=== PATIENT | female | born 1945 | race Caucasian/White ===

== ENCOUNTER 2017-05-30 10:09 | Inpatient (IN) ==
[2017-05-30] MEDS ORDERED: DUONEB NEB STA (11:11)
[2017-05-30] MEDS ORDERED: DECADRON 4 MG/ML SDV IM STA (11:11)
--- NOTE | 2017-05-30 13:18 | ED.PDOC ---
General ED Provider: Dr. HELENA WOODS Chief Complaint: Respiratory Complaint Stated Complaint: flu like symp Time Seen by Physician: 10:10 Mode of Arrival: Walk-In Information Source: Patient Exam Limitations: No limitations Primary Care Provider: SHANNAN LEON Nursing and Triage Documentation Reviewed and Agree: Yes Reviewed sepsis parameters & appropriate labs ordered?: Yes System Inflammatory Response Syndrome: Not Applicable Sepsis Protocol: For patient's 13 years and over: Temp is 96.8 and below OR 101 and greater Pulse >90 BPM Resp >20/minute Acutely Altered Mental Status Are patient's symptoms suggestive of a new infection, such as: -Pneumonia -Skin, Soft Tissue -Endocarditis -UTI -Bone, Joint Infection -Implantable Device -Acute Abdominal Infection -Wound Infection -Meningitis -Blood Stream Catheter Infection -Unknown System Inflammatory Response Syndrome: Not Applicable Respiratory Complaint Exam - Respiratory Complaint/Exam Onset/Duration: 2 days Symptoms Are: Still present Timing: Intermittent Initial Severity: Moderate Current Severity: Mild Location: Nose Character: Reports: Non-productive cough, Dry cough Aggravating: Reports: URI Associated Signs and Symptoms: Reports: URI, Nasal congestion History of Healthcare-Acquired Pneumonia: No Related Surgical History: Reports: None Pulmonary Embolism Risk Factors: Bedrest Cardiac Risk Factors: Reports: None Pseudomonas Risk Factors: Reports: None Tuberculosis Risk Factors: Reports: None Status Asthmaticus Risk Factors: Reports: None Home Oxygen Use: No Recent Stress Test: No Recent Echo/LV Function: No Current Antibiotic Use: No Current Asthma Medication Use: No Respiratory Distress: None Inadequate Respiratory Effort: No Dysphagia Present: No Stridor Present: No JVD Present: No Retractions: Not Present Diminished Breath Sounds: Yes Differential Diagnoses: CHF, Pulmonary Edema, COPD Exacerbation, Pneumonia, URI , Lower Resp. Infection Review of Systems - Review Of Systems Constitutional: Reports: Malaise, Weakness, Loss of appetite Eyes: Reports: No symptoms Ears, Nose, Mouth, Throat: Reports: No symptoms Respiratory: Reports: Cough, Short of air Cardiac: Reports: No symptoms GI: Reports: No symptoms : Reports: No symptoms Musculoskeletal: Reports: No symptoms Skin: Reports: No symptoms Neurological: Reports: No symptoms Endocrine: Reports: No symptoms Hematologic/Lymphatic: Reports: No symptoms All Other Systems: Reviewed and Negative Past Medical History - Past Medical History Previously Healthy: No Endocrine: Reports: None Cardiovascular: Reports: Hypertension Respiratory: Reports: None Hematological: Reports: None Gastrointestinal: Reports: GERD Genitourinary: Reports: None Neuro/Psych: Reports: None Musculoskeletal: Reports: None Cancer: Reports: None Last Menstrual Period: na - Surgical History General Surgical History: Reports: None - Family History Family History: Reports: None - Social History Smoking Status: Former smoker Hx Substance Use: No Alcohol Screening: None - Immunizations Tetanus Shot up to Date: No Physical Exam - Physical Exam Appearance: Well-appearing, No pain distress, Well-nourished Eyes: JAYLEEN, EOMI, Conjunctiva clear ENT: Ears normal, Nose normal, Oropharynx normal Respiratory: Airway patent, Breath sounds clear, Breath sounds equal, Respirations nonlabored Cardiovascular: RRR, Pulses normal, No rub, No murmur GI/: Soft, Nontender, No masses, Bowel sounds normal, No Organomegaly Musculoskeletal: Normal strength, ROM intact, No edema, No calf tenderness Skin: Warm, Dry, Normal color Neurological: Sensation intact, Motor intact, Reflexes intact, Cranial nerves intact, Alert, Oriented Psychiatric: Affect appropriate, Mood appropriate Interpretation - Radiology Interpretation Radiology Interpretation By: Radiologist Radiology Results: Positive (neoplasia vs pneumonia) Physician Notification - Case Discussed Physician Notified: david Time of Notification: 14:39 Admit To: Inpatient Critical Care Note - Critical Care Note Total Time (mins): 0 Course - Course Hematology/Chemistry: 05/30/17 11:22 05/30/17 11:22 Orders, Labs, Meds: Lab Review 05/30/17 05/30/17 05/30/17 11:22 11:22 11:22 WBC 8.86 RBC 3.93 L Hgb 13.2 Hct 38.5 MCV 98.0 MCH 33.6 H MCHC 34.3 RDW Coeff of Lizz 11.5 L Plt Count 149 Immature Gran % (Auto) 0.2 Neut % (Auto) 89.7 Lymph % (Auto) 4.7 L Centre % (Auto) 5.3 Eos % (Auto) 0.0 Baso % (Auto) 0.1 Immature Gran # (Auto) 0.0 Neut # 7.9 H Lymph # 0.4 L Centre # 0.5 Eos # 0.0 Baso # 0.0 Sodium 130 L Potassium 4.1 Chloride 95 L Carbon Dioxide 26 Anion Gap 13.1 BUN 11 Creatinine 0.82 Estimated GFR (MDRD) 68.00 BUN/Creatinine Ratio 13.41 Glucose 154 H Lactic Acid 16.5 Calcium 9.2 Total Bilirubin 0.5 AST 26 ALT 20 Alkaline Phosphatase 48 L Total Creatine Kinase 82 Troponin I 0.0160 Total Protein 6.8 Albumin 3.2 L Globulin 3.6 Albumin/Globulin Ratio 0.89 Procalcitonin Urine Color Urine Clarity Urine pH Ur Specific [place] Urine Protein Urine Glucose (UA) Urine Ketones Urine Blood Urine Nitrite Urine Bilirubin Urine Urobilinogen Ur Leukocyte Esterase Urine Microscopic RBC Urine Microscopic WBC Ur Squamous Epith Cells Hyaline Casts Influenza A (Rapid) Influenza B (Rapid) 05/30/17 05/30/17 05/30/17 11:22 11:30 13:10 WBC RBC Hgb Hct MCV MCH MCHC RDW Coeff of Lizz Plt Count Immature Gran % (Auto) Neut % (Auto) Lymph % (Auto) Centre % (Auto) Eos % (Auto) Baso % (Auto) Immature Gran # (Auto) Neut # Lymph # Centre # Eos # Baso # Sodium Potassium Chloride Carbon Dioxide Anion Gap BUN Creatinine Estimated GFR (MDRD) BUN/Creatinine Ratio Glucose Lactic Acid Calcium Total Bilirubin AST ALT Alkaline Phosphatase Total Creatine Kinase Troponin I Total Protein Albumin Globulin Albumin/Globulin Ratio Procalcitonin 0.14 Urine Color Yellow Urine Clarity Clear Urine pH 6.0 Ur Specific [place] 1.010 Urine Protein 1+ Urine Glucose (UA) Negative Urine Ketones Negative Urine Blood 2+ Urine Nitrite Negative Urine Bilirubin Negative Urine Urobilinogen 0.2 Ur Leukocyte Esterase Negative Urine Microscopic RBC 0-2 Urine Microscopic WBC 0-2 Ur Squamous Epith Cells 0-2 Hyaline Casts 0-2 Influenza A (Rapid) Positive by naat H Influenza B (Rapid) Negative by naat Orders Category Date Time Status ADMIT PATIENT INPATIENT .TO MEDSURG (NON-MONITORED ADMISSION 05/30/17 14: 35 Ordered BED) EKG-(ED ONLY) Stat CARDIO 05/30/17 11:10 Completed EKG-(IP & OP ONLY) DAILY CARDIO 05/31/17 06:00 Ordered EKG-(IP & OP ONLY) DAILY CARDIO 06/01/17 06:00 Ordered EKG-(IP & OP ONLY) DAILY CARDIO 06/02/17 06:00 Ordered NEBULIZER TREATMENT Stat CARDIO 05/30/17 11:11 Completed NEBULIZER TREATMENT Stat CARDIO 05/30/17 14:34 Ordered VITAL SIGNS Q8HR CARE 05/30/17 14:35 Ordered REGULAR DIET DIETARY 05/30/17 Lunch Ordered BLOOD CULTURE Stat LAB 05/30/17 11:22 Received CBC W/ AUTO DIFF DAILY@0600 LAB 05/31/17 06:00 Ordered CBC W/ AUTO DIFF DAILY@0600 LAB 06/01/17 06:00 Ordered CBC W/ AUTO DIFF Stat LAB 05/30/17 11:22 Completed COMPREHENSIVE METABOLIC PANEL DAILY@0600 LAB 05/31/17 06:00 Ordered COMPREHENSIVE METABOLIC PANEL DAILY@0600 LAB 06/01/17 06:00 Ordered COMPREHENSIVE METABOLIC PANEL Stat LAB 05/30/17 11:22 Completed CREATINE KINASE Stat LAB 05/30/17 11:22 Completed FLU A/B MOLECULAR Stat LAB 05/30/17 11:30 Completed LACTIC ACID Stat LAB 05/30/17 11:22 Completed PROCALCITONIN Stat LAB 05/30/17 11:22 Completed TROPONIN I Stat LAB 05/30/17 11:22 Completed URINALYSIS C & S IF INDICATED Stat LAB 05/30/17 13:10 Completed Ceftriaxone Sodium [Rocephin] 1 gm MEDS 05/30/17 15:00 Ordered 0.9 % Sodium Chloride [Sodium Chloride] 50 ml IV DAILY Clopidogrel Bisulfate [Plavix] MEDS 05/31/17 09:00 Ordered 75 mg PO DAILY Dexamethasone 4 mg/ml Inj [Decadron 4 mg/ml Sdv] MEDS 05/30/17 11:11 Discontinued 8 mg IM ONCE STA Ipratropium/Albuterol Neb [Duoneb] MEDS 05/30/17 11:11 Discontinued 1 vial NEB ONCE STA Ipratropium/Albuterol Neb [Duoneb] MEDS 05/30/17 18:00 Ordered 1 vial NEB RTQ6H Methylprednisolone Sod Succ/Pf [Solu-Medrol 40 mg] MEDS 05/30/17 21:00 Ordered 40 mg IVP Q12HR Metoprolol Tartrate [Metoprolol Tartrate] MEDS 05/30/17 21:00 Ordered 100 mg PO BID Omeprazole [Prilosec] MEDS 05/31/17 09:00 Ordered 20 mg PO DAILY Sodium Chloride 0.9% [Sodium Chloride] 1,000 ml MEDS 05/30/17 15:00 Ordered IV 75 mls/hr Vancomycin HCl [Vancomycin] 1,000 mg MEDS 05/30/17 14:33 Ordered 0.9 % Sodium Chloride [Sodium Chloride] [address] CHEST W/O CONTRAST Stat RADS 05/30/17 13:17 Completed Medications Generic Name Dose Route Start Last Admin Trade Name Juan Antonioq PRN Reason Stop Dose Admin Albuterol/Ipratropium 1 vial 05/30/17 18:00 Duoneb MARYLOU RTQ6H BEKAH Clopidogrel Bisulfate 75 mg 05/31/17 09:00 Plavix PO DAILY BEKAH Ceftriaxone Sodium 1 gm/ 50 mls @ 75 mls/hr 05/30/17 15:00 Sodium Chloride IV DAILY BEKAH Vancomycin HCl 1,000 mg/ 200 mls @ 100 mls/hr 05/30/17 14:33 Sodium Chloride IV 05/30/17 16:32 ONCE STA Sodium Chloride 1,000 mls @ 75 mls/hr 05/30/17 15:00 Sodium Chloride IV .[id number] BEKAH Methylprednisolone Sodium Succinate 40 mg 05/30/17 21:00 Solu-Medrol 40 Mg IVP Q12HR [facility] Non-Formulary Medication 100 mg 05/30/17 21:00 Metoprolol Tartrate [Metoprolol Tartrate] PO BID BEKAH Omeprazole 20 mg 05/31/17 09:00 Prilosec PO DAILY [facility] Discontinued Medications Generic Name Dose Route Start Last Admin Trade Name Tori PRN Reason Stop Dose Admin Albuterol/Ipratropium 1 vial 05/30/17 11:11 05/30/17 11:35 Baldev HICKMAN 05/30/17 11:12 1 vial ONCE STA Administration Dexamethasone Sodium Phosphate 8 mg 05/30/17 11:11 05/30/17 11:30 Decadron 4 Mg/Ml Sdv IM 05/30/17 11:12 8 mg ONCE STA Administration Vital Signs: Temp Pulse Resp BP Pulse Ox 05/30/17 10:10 99.7 F H 125 H 16 129/79 90 L Departure - Departure Time of Disposition: 14:39 Disposition: ADMITTED INPATIENT Discharge Problem: Pneumonia Qualifiers: Pneumonia type: due to unspecified organism Instructions: Pneumonitis (ED) Condition: Good Pt referred to PMD for follow-up: Yes IPMP verified?: Yes Additional Instructions: Please call your Family Physician as soon as possible to schedule a follow-up appointment. Allergies/Adverse Reactions: Allergies meperidine HCl [From Demerol] Allergy (Intermediate, Unverified 02/04/15 12:39) Hives amoxicillin [From Amoxil] Adverse Reaction (Verified 05/30/17 10:24) cefdinir Adverse Reaction (Verified 05/30/17 10:24) clavulanic acid [From Augmentin] Adverse Reaction (Verified 05/30/17 10:24) phenytoin [From Dilantin] Adverse Reaction (Verified 05/30/17 10:24) Home Medications: Ambulatory Orders Amlodipine Besylate/Benazepril [Amlodipine-Benazepril 10-20 Mg] 1 each PO DAILY 02/04/15 Clopidogrel Bisulfate [Clopidogrel] 75 mg PO DAILY 02/04/15 Metoprolol Tartrate 100 mg PO BID 02/04/15 Albuterol Sulfate [Ventolin Hfa] 2 puff IH TID 05/30/17 Calcium Carbonate [Calcium] 600 mg PO DAILY 05/30/17 Cholecalciferol (Vitamin D3) [Vitamin D3] 1 cap PO DAILY 05/30/17 Omeprazole [Prilosec] 20 mg PO DAILY 05/30/17 Umeclidinium Brm/Vilanterol Tr [Anoro Ellipta 62.5-25 Mcg INH] 1 puff IH DAILY PRN 05/30/17 Vitamin E 1,000 units PO DAILY 05/30/17 Disposition Discussed With: Patient, Family
--- NOTE | 2017-05-30 13:56 | CT ---
EXAM: CT THORAX HISTORY: Cough. TECHNIQUE: CT thorax without intravenous contrast. Multiplanar images presented. Coronal and sagit vineet re-formations. COMPARISON: None FINDINGS: Normal heart size. Mild atherosclerotic disease. There are scattered calcifications suggesting old g ranulomatous disease. There is scattered fibrosis. Mild bilateral bronchiectasis. A few stellate opacities are seen in th e right apex, greater than left apex possibly fibrotic in nature. Mild pneumonia at this level, irais cially on the right cannot completely be excluded. The lungs are otherwise unremarkable. No pleural fluid or vascular congestion. The bones reveal no acute finding. IMPRESSION: Patchy biapical pleuroparenchymal thickening which is likely fibrotic. Cannot exclude early neoplasi a or pneumonia. Lungs are otherwise clear. Consider follow-up CT in 3-4 months.
[2017-05-30] MEDS ORDERED: VANCOMYCIN 1,000 MG in SODIUM CHLORIDE 200 ML IV STA (14:33)
[2017-05-30] MEDS ORDERED: TYLENOL PO STA (15:10)
[2017-05-30] MEDS ORDERED: VANCOMYCIN ONE (15:11)
[2017-05-30 16:23] VITALS: BMI 34.8
[2017-05-30] MEDS: SODIUM CHLORIDE 1,000 ML IV SCH (17:52)
[2017-05-30] MEDS ORDERED: ROCEPHIN ONE (17:55)
[2017-05-30] MEDS: ROCEPHIN 1 GM in SODIUM CHLORIDE 50 ML IV SCH (17:58)
[2017-05-30] MEDS ORDERED: DUONEB NEB SCH (18:00)
[2017-05-30] MEDS: DUONEB NEB SCH (20:11)
[2017-05-30] MEDS ORDERED: NON-FORMULARY MEDICATION (Metoprolol Tartrate [Metoprolol Tartrate] 100 MG) PO SCH (21:00)
[2017-05-30] MEDS: LOPRESSOR PO SCH (22:06)
[2017-05-30] MEDS: SOLU-MEDROL 40 MG IVP SCH (22:06)
[2017-05-31] MEDS: DUONEB NEB SCH ×4 (04:19→21:35)
[2017-05-31] MEDS: PRILOSEC PO SCH (05:39)
[2017-05-31] MEDS: SODIUM CHLORIDE 1,000 ML IV SCH ×2 (07:59→11:00)
[2017-05-31] MEDS: SOLU-MEDROL 40 MG IVP SCH ×2 (08:01→20:41)
[2017-05-31] MEDS: LOPRESSOR PO SCH ×2 (08:01→20:41)
[2017-05-31] MEDS: PLAVIX PO SCH (08:01)
[2017-05-31] MEDS: ROCEPHIN 1 GM in SODIUM CHLORIDE 50 ML IV SCH (08:03)
[2017-05-31] MEDS: TAMIFLU PO SCH ×2 (12:56→20:41)
[2017-06-01] MEDS: SODIUM CHLORIDE 1,000 ML IV SCH (03:43)
[2017-06-01] MEDS: DUONEB NEB SCH ×4 (05:00→21:48)
[2017-06-01] MEDS: PRILOSEC PO SCH (05:43)
[2017-06-01] MEDS: ROCEPHIN 1 GM in SODIUM CHLORIDE 50 ML IV SCH (08:43)
[2017-06-01] MEDS: TAMIFLU PO SCH ×2 (08:43→20:06)
[2017-06-01] MEDS: SOLU-MEDROL 40 MG IVP SCH ×2 (08:43→20:06)
[2017-06-01] MEDS: LOPRESSOR PO SCH ×2 (08:44→20:06)
[2017-06-01] MEDS: PLAVIX PO SCH (08:44)
--- NOTE | 2017-06-01 10:09 | HP ---
DATE OF SERVICE: 05/30/17 CHIEF COMPLAINT: Cough, congestion and fever. HISTORY OF PRESENT ILLNESS: This is a 72 year old female who has been coughing , congested, getting a little green phlegm for four to five days, almost last Monday. Temperature max was 100. The patient's daughter was diagnosed with bronchial fever with sputum. She came to the emergency room today and the temperature was 99.7. She was seen by Dr. Hwang in the emergency room. White count was normal. Sodium 140. Influenza positive. CT of the chest was done which showed patchy biapical pleuroparenchymal thickening which is likely fibrotic. Cannot exclude early neoplasia or pneumonia. At that time, the patient was admitted to the hospital for the IV antibiotics and breathing treatments. REVIEW OF SYSTEMS: CONSTITUTIONAL: Weakness, tiredness. Fever, no chills. HEENT: Normal. ENDOCRINE: No weight gain; no weight loss. CVS: No chest pain. No PND, no orthopnea. Shortness of breath. No PND, no orthopnea. RESPIRATORY: Cough and congestion. No hemoptysis. GI: No nausea, no vomiting. No abdominal pain. No melena. : No hematuria. No polyuria. MUSCULOSKELETAL: No joint swelling. PSYCHIATRIC: Not anxious. No depression. No suicidal thoughts. No homicidal thoughts. SKIN: Intact, no open lesions. PAST MEDICAL HISTORY: Hypertension Coronary artery disease Dyslipidemia COPD Mitral valve prolapse Nicotine use PAST SURGICAL HISTORY: Intracranial aneurism clipped Tonsillectomy PERSONAL HISTORY: Quit smoking six years ago. No alcohol and no drugs. Lives by herself. Independent of ADL's. FAMILY HISTORY: Significant for the RI and diabetes. Two brothers have diabetes and prostate cancer. MEDICATIONS: Metoprolol, Plavix, Norvasc, Vitamin E, Omeprazole, Vitamin D3, Calcium, Anoro and Ventolin. ALLERGIES: Meperidine, Amoxicillin, Clavulanic acid and Cefdinir. PHYSICAL EXAMINATION: V/S: Blood pressure 129/79, respiratory rate 125, saturation 90, temperature 99.7. HEENT: Atraumatic, normocephalic. No scleral icterus. Pallor positive. Mucosa dry. No icterus. NECK: Supple. No JVD, no bruit. No lymphadenopathy. No thyromegaly. HEART: S1, S2 normal. No murmur. No cyanosis or clubbing. No ascites. LUNGS: Decreased basilar crackles. No rales or rhonchi. ABDOMEN: Soft, nontender. Bowel sounds are active. No CVA tenderness. No rigidity or guarding. EXTREMITIES: No pedal edema. No cyanosis or clubbing MUSCULOSKELETAL: Normal joints, no swelling. NEUROLOGIC: The patient is awake and alert. SKIN: Intact; no open lesions. LYMPHATIC: No lymph nodes palpable. LABS: White count 8.86, hemoglobin 13.2, hematocrit 38.5, platelet count 149, sodium 130, potassium 4.1, chloride 95, bicarb 26, BUN 11, creatinine 0.82, glucose 154. ASSESSMENT: 1. COMMUNITY ACQUIRED PNEUMONIA 2. HYPONATREMIA 3. HYPERTENSION 4. DYSLIPIDEMIA PLAN: 1. Admit the patient to the regular floor. 2. CBC, CMP today and daily. 3. Cardiac enzymes and Troponins. 4. IV fluids. 5. Rocephin 1 gram daily. 6. Plavix 7. DuoNebs. 8. Solu-Medrol 40 every 12 hours. 9. Vancomycin 1 gram daily. 10.Daily I & O's. TIME SPENT: MORE THAN 70 minutes MTDD
--- NOTE | 2017-06-01 10:17 | PN ---
DATE OF SERVICE: 05/31/17 SUBJECTIVE: 72 year old female admitted with influenza positive and pneumonia with a CT scan. Still some coughing. Otherwise, no chest pain, PND, orthopnea. REVIEW OF SYSTEMS: CONSTITUTIONAL: No fever, no chills. HEENT: Normal. ENDOCRINE: No weight gain, no weight loss. CVS: No angina symptoms. No CHF symptoms. No palpitations. No atypical chest pain for CAD. No shortness of breath. No PND, no orthopnea. RESPIRATORY: Cough, no hemoptysis. GI: No nausea, no vomiting. No abdominal pain. : No hematuria. No polyuria. MUSCULOSKELETAL: No joint swelling. PSYCHIATRIC: Not anxious. No depression. No suicidal thoughts. No homicidal thoughts. SKIN: Intact. No rash. PHYSICAL EXAMINATION: V/S: Blood pressure 134/81, respiratory rate 20, heart rate 74, temperature 96.7 , saturation 96 on 2 liters. HEENT: Normocephalic, atraumatic. Mucosa dry. NECK: Supple. No JVD, no carotid bruit. No lymphadenopathy. LUNGS: Basilar crackles. No rales or rhonchi. HEART: S1, S2 normal. No S3. No murmur, gallop or regurgitation. ABDOMEN: Soft, nontender. Bowel sounds active. No rigidity. No rebound or guarding. No CVA tenderness. EXTREMITIES: No pedal edema. No clubbing or cyanosis MUSCULOSKELETAL: No joint swelling. NEUROLOGIC: Awake, alert, oriented times three. No focal deficit. LYMPHATIC: No lymph nodes palpable. SKIN: Intact. LABS: Sodium 137, potassium 4.4, chloride 105, bicarb 24, BUN 17, creatinine 0.75, glucose 148, white count 5.66, hemoglobin 13.7, hematocrit 40.1, platelet count 166. ASSESSMENT: 1. COMMUNITY ACQUIRED PNEUMONIA 2. INFLUENZA A POSITIVE 3. DEHYDRATION 4. HYPERTENSION 5. HISTORY OF MITRAL VALVE PROLAPSE 6. HEADACHE 7. HISTORY OF ANEURYSM PLAN: 1. Continue Rocephin, DuoNebs, Solu-Medrol 40 mg every 12 hours. 2. Daily I & O's. 3. Will decrease the IV fluids to 30 ml per hour. 4. Will follow up with the patient in daily rounds. TIME SPENT: More than 30 minutes MTDD
[2017-06-01] MEDS: ZITHROMAX PO SCH (11:01)
--- NOTE | 2017-06-01 13:01 | CT ---
EXAM: CT chest without contrast HISTORY: Shortness of breath, hypoxia, Influenza A, pneumonia COMPARISON: 05/30/2017 TECHNIQUE: CT chest performed without intravenous contrast. Coronal and sagittal reformatted images obtained. FINDINGS: Thyroid and thoracic inlet appear normal. Heart normal in size. Esophagus unremarkable. Evaluation for lymphadenopathy limited without contrast. No lymphadenopathy identified. Granulomat ous calcification. No acute abnormalities of the bones. Degenerative change in the spine. Central airway patent. Mild to moderate centrilobular emphysema. Bilateral lower airway thickening. No ple ural effusion or pneumothorax. Small dependent ground-glass right lung base image 43. Stable biapic al pleural parenchymal thickening. No airspace consolidation. IMPRESSION: 1. Bilateral lower airway thickening, likely infectious/inflammatory bronchitis. 2. Mild right basilar dependent ground-glass likely atelectasis versus less likely pneumonitis. 3. Mild to moderate centrilobular emphysema 4. Biapical pleural parenchymal thickening, likely representing scarring/fibrosis. Recommend CT thalia st follow-up 4 months to ensure stability.
[2017-06-02] MEDS: DUONEB NEB SCH ×4 (04:33→20:12)
[2017-06-02] MEDS: PRILOSEC PO SCH (05:59)
[2017-06-02] MEDS: PLAVIX PO SCH (08:53)
[2017-06-02] MEDS: ROCEPHIN 1 GM in SODIUM CHLORIDE 50 ML IV SCH (08:53)
[2017-06-02] MEDS: SOLU-MEDROL 40 MG IVP SCH ×2 (08:53→20:16)
[2017-06-02] MEDS: ZITHROMAX PO SCH (08:54)
[2017-06-02] MEDS: DOXYCYCLINE HYCLATE PO SCH ×2 (08:54→20:16)
[2017-06-02] MEDS: TAMIFLU PO SCH ×2 (08:54→20:16)
[2017-06-02] MEDS: LOPRESSOR PO SCH ×2 (08:54→20:16)
[2017-06-02] MEDS ORDERED: VANCOMYCIN 1,000 MG in SODIUM CHLORIDE 200 ML IV SCH (09:00)
[2017-06-02] MEDS: VANCOMYCIN 750 MG in SODIUM CHLORIDE 250 ML IV SCH ×2 (09:47→20:15)
[2017-06-03] MEDS: DUONEB NEB SCH ×4 (05:15→20:19)
[2017-06-03] MEDS: PRILOSEC PO SCH (05:47)
[2017-06-03] MEDS: VANCOMYCIN 750 MG in SODIUM CHLORIDE 250 ML IV SCH ×2 (09:00→21:28)
[2017-06-03] MEDS: DOXYCYCLINE HYCLATE PO SCH ×2 (09:01→21:27)
[2017-06-03] MEDS: LOPRESSOR PO SCH ×2 (09:01→21:28)
[2017-06-03] MEDS: PLAVIX PO SCH (09:02)
[2017-06-03] MEDS: TAMIFLU PO SCH ×2 (09:02→21:28)
[2017-06-03] MEDS: SOLU-MEDROL 40 MG IVP SCH (09:03)
[2017-06-03] MEDS: ZITHROMAX PO SCH (09:03)
[2017-06-03] MEDS: ROCEPHIN 1 GM in SODIUM CHLORIDE 50 ML IV SCH (11:37)
[2017-06-03] MEDS: PREDNISONE PO SCH (18:08)
[2017-06-04] MEDS: DUONEB NEB SCH ×3 (04:48→14:05)
[2017-06-04] MEDS: PRILOSEC PO SCH (05:43)
[2017-06-04] MEDS: PREDNISONE PO SCH (08:37)
[2017-06-04] MEDS: PLAVIX PO SCH (08:37)
[2017-06-04] MEDS: LOPRESSOR PO SCH (08:37)
[2017-06-04] MEDS: DOXYCYCLINE HYCLATE PO SCH (08:38)
[2017-06-04] MEDS: TAMIFLU PO SCH (08:38)
[2017-06-04] MEDS: ROCEPHIN 1 GM in SODIUM CHLORIDE 50 ML IV SCH (08:38)
[2017-06-04] MEDS: VANCOMYCIN 750 MG in SODIUM CHLORIDE 250 ML IV SCH (10:02)
[2017-06-04 10:16] VITALS: BP 140/77; TEMP 97
--- NOTE | 2017-06-09 09:52 | PN ---
DATE OF SERVICE: 06/01/17 SUBJECTIVE: The patient was admitted with the flu and pneumonia. Still coughing with congestion and shortness of breath with minimal exertion. The patient is dropping the saturation to the 90's with minimal exertion. REVIEW OF SYSTEMS: CONSTITUTIONAL: No fever, no chills. HEENT: Normal. ENDOCRINE: No weight gain, no weight loss. CVS: No angina symptoms. No CHF symptoms. No palpitations. No atypical chest pain for CAD. Shortness of breath. No PND, no orthopnea. RESPIRATORY: Cough and congestion, no hemoptysis. GI: No nausea, no vomiting. No abdominal pain. : No hematuria. No polyuria. MUSCULOSKELETAL: No joint swelling. PSYCHIATRIC: Not anxious. No depression. No suicidal thoughts. No homicidal thoughts. SKIN: Intact. No rash. PHYSICAL EXAMINATION: V/S: Blood pressure 124/71, respiratory rate 20, heart rate 76, temperature 97.2 , saturation 96 on 2 liters. HEENT: Normocephalic, atraumatic. Mucosa dry. Pallor positive. NECK: Supple. No JVD, no carotid bruit. No lymphadenopathy. LUNGS: Decreased basilar crackles. No rales or rhonchi. HEART: S1, S2 normal. No S3. No murmur, gallop or regurgitation. ABDOMEN: Soft, nontender. Bowel sounds active. No rigidity. No rebound or guarding. No CVA tenderness. EXTREMITIES: No pedal edema. No clubbing or cyanosis MUSCULOSKELETAL: No joint swelling. NEUROLOGIC: Awake, alert, oriented times three. No focal deficit. LYMPHATIC: No lymph nodes palpable. SKIN: Intact. LABS: White count 12.50, hemoglobin 12.9, hematocrit 37.9, platelet count 181, sodium 137, potassium 4.2, chloride 104, bicarb 18, BUN 21, creatinine 0.80, glucose 162. ABG done which showed a pH of 7.335, PCO2 38.9, PO2 76. ASSESSMENT: 1. CHRONIC OBSTRUCTIVE PULMONARY DISEASE EXACERBATION SECONDARY TO THE PNEUMONIA 2. INFLUENZA A POSITIVE 3. HYPERGLYCEMIA FROM THE STEROIDS 4. HISTORY OF MITRAL VALVE PROLAPSE 5. HYPERTENSION 6. HISTORY OF BRAIN ANEURYSM WITH A CLIP 7. HISTORY OF LYME'S DISEASE PLAN: 1. Continue the Rocephin, Zithromycin, Tamiflu. 2. Daily I & O's. 3. Start Solu-Medrol 40 mg every 12 hours. 4. IV fluids. TIME SPENT: More than 35 minutes MTDD
--- NOTE | 2017-06-09 10:04 | PN ---
DATE OF SERVICE: 06/02/17 SUBJECTIVE: The patient is still short of breath with minimal exertion. She is coughing and not able to bring any phlegm. No fever or chills. Ct scan of the chest done yesterday showed the bilateral lower airway thickening likely infectious and inflammatory. Mild right basilar dependent atelectasis. Mild to moderate centrilobular emphysema. Biapical pleural parenchymal thickening. Repeat the CT scan in four months. With the given picture, the patient still having some cough and congestion, no fever whatsoever. REVIEW OF SYSTEMS: CONSTITUTIONAL: No fever, no chills. HEENT: Normal. ENDOCRINE: No weight gain, no weight loss. CVS: No angina symptoms. No CHF symptoms. No palpitations. No atypical chest pain for CAD. Shortness of breath. No PND, no orthopnea. RESPIRATORY: Cough and congestion, no hemoptysis. GI: No nausea, no vomiting. No abdominal pain. : No hematuria. No polyuria. MUSCULOSKELETAL: No joint swelling. PSYCHIATRIC: Not anxious. No depression. No suicidal thoughts. No homicidal thoughts. SKIN: Intact. No rash. PHYSICAL EXAMINATION: V/S: Blood pressure 124/71, respiratory rate 20, heart rate 76, saturation on 2 liters is 96, Temperature 97.2. HEENT: Normocephalic, atraumatic. Mucosa dry. NECK: Supple. No JVD, no carotid bruit. No lymphadenopathy. LUNGS: Decreased basilar crackles with mild wheezing. No rales or rhonchi. HEART: S1, S2 normal. No S3. No murmur, gallop or regurgitation. ABDOMEN: Soft, nontender. Bowel sounds active. No rigidity. No rebound or guarding. No CVA tenderness. EXTREMITIES: No pedal edema. No clubbing or cyanosis MUSCULOSKELETAL: No joint swelling. NEUROLOGIC: Awake, alert, oriented times three. No focal deficit. LYMPHATIC: No lymph nodes palpable. SKIN: Intact. LABS: Sodium 136, potassium 4.2, chloride 105, bicarb 24, BUN 26, creatinine 0.688, white count 10.25, hemoglobin 13.1, hematocrit 38.8, platelet count 153. ASSESSMENT: 1. COPD EXACERBATION SECONDARY TO PNEUMONIA, BILATERAL 2. INFLUENZA A POSITIVE 3. HISTORY OF HYPERTENSION 4. MITRAL VALVE PROLAPSE 5. BRAIN ANEURYSM, STATUS POST CLIPPING PLAN: 1. Start the Doxycycline 100 p.o. twice daily. 2. Vancomycin 1 gram daily. 3. DuoNebs. 4. Rocephin. 5. Solu-Medrol. 6. Daily I & O's. TIME SPENT: More than 35 minutes MTDD
--- NOTE | 2017-06-09 10:11 | PN ---
DATE OF SERVICE: 06/03/17 SUBJECTIVE: The patient's cough and congestion is better. Shortness of breath is a lot improved. No fever or chills. REVIEW OF SYSTEMS: CONSTITUTIONAL: No fever, no chills. HEENT: Normal. ENDOCRINE: No weight gain, no weight loss. CVS: No angina symptoms. No CHF symptoms. No palpitations. No atypical chest pain for CAD. Shortness of breath. No PND, no orthopnea. RESPIRATORY: Cough, no hemoptysis. GI: No nausea, no vomiting. No abdominal pain. : No hematuria. No polyuria. MUSCULOSKELETAL: No joint swelling. PSYCHIATRIC: Not anxious. No depression. No suicidal thoughts. No homicidal thoughts. SKIN: Intact. No rash. PHYSICAL EXAMINATION: V/S: Blood pressure 137/77, respiratory rate 20, heart rate 92, temperature 97.7 , saturation 95 on 2 liters. HEENT: Normocephalic, atraumatic. Mucosa dry. NECK: Supple. No JVD, no carotid bruit. No lymphadenopathy. LUNGS: Basilar crackles. No rales or rhonchi. HEART: S1, S2 normal. No S3. No murmur, gallop or regurgitation. ABDOMEN: Soft, nontender. Bowel sounds active. No rigidity. No rebound or guarding. No CVA tenderness. EXTREMITIES: No pedal edema. No clubbing or cyanosis MUSCULOSKELETAL: No joint swelling. NEUROLOGIC: Awake, alert, oriented times three. No focal deficit. LYMPHATIC: No lymph nodes palpable. SKIN: Intact. LABS: White count 10.25, hemoglobin 13.1, hematocrit 38.8, platelet count 158, sodium 136, potassium 4.2, chloride 105, bicarb 24, BUN 26, creatinine 0.88. ASSESSMENT: 1. COMMUNITY ACQUIRED PNEUMONIA 2. INFLUENZA A POSITIVE 3. HYPERTENSION 4. GERD PLAN: 1. Continue the Rocephin, Solu-Medrol, fluids and DuoNebs. TIME SPENT: More than 35 minutes MTDD
--- NOTE | 2017-06-09 10:28 | DS ---
DATE OF SERVICE: 06/04/17 FINAL DIAGNOSIS: 1. CHRONIC OBSTRUCTIVE PULMONARY DISEASE EXACERBATION SECONDARY TO COMMUNITY ACQUIRED PNEUMONIA 2. INFLUENZA A POSITIVE 3. DEHYDRATION 4. HISTORY OF MITRAL VALVE PROLAPSE 5. HISTORY OF BRAIN ANEURYSM, WHICH IS CLIPPED 6. HISTORY OF LYME'S DISEASE 7. OSTEOARTHRITIS 8. DJD OF THE SPINE 9. TONSILLECTOMY PLAN: 1. Discharge the patient home. 2. Medications: Keflex 500 mg twice a day for 5 days. DuoNebs three times daily Prednisone 10 mg p.o. twice a day for 5 days 3. Continue the rest of the home medications, which are: Stop the Albuterol, Continue Norvasc, Calcium, Vitamin D3, Plavix, DuoNebs, Omeprazole, Metoprolol, Anoro inhaler and Vitamin E 4. Diet: Cardiac and healthy. 5. Activity: As much as tolerated. DISEASE SPECIFIC EDUCATION: About the pneumonia, COPD, need for the pneumonia vaccination, influenza and need for the influenza vaccination and dehydration were discussed. She verbalized understanding. HOSPITAL COURSE: Myesha Ross, who is a 72 year old female patient of Dr. Roberson from [place], has a history of COPD and came to the emergency room with fever, chills, coughing, congestion and found to have influenza A positive and community acquired pneumonia. At that time, the patient was admitted to the hospital and started on the IV fluids and breathing treatments, Rocephin, Zithromycin and Tamiflu. With the given treatment, the patient was gradually feeling better, but was having some exertional dyspnea for which an ABG was done which showed a pH of 7.335, PCO2 38.9, PO2 76. Repeat chest x-ray again showed the bilateral basilar infiltrate. She was started on Vancomycin and continued with Rocephin and Doxycycline was added. Mouth of the patient has a tremorness response and improvement. With the Dexamethasone in between, the patient did improve much. She was up and about walking and did not have any fever or chills. Clinically, she had improved a lot and the patient is being discharged to home today with order of antibiotics and breathing treatments. The patient's son was in the room to discuss the patient's care and management. He verbalized understanding. Both were happy with taking part in the patient' s health. TIME SPENT: MORE THAN 55 to 65 MINUTES MTDD
== END 2017-06-04 14:46 | disposition home or self-care (01) | DRG 194 ==
LOC: ED 10:09 → MEDSURG B 14:46
PROVIDERS: ADMIT Emergency Medicine; ATTEND Emergency Medicine
DX: J18.9 Pneumonia, unspecified organism (principal); J44.1 Chronic obstructive pulmonary disease with (acute) exacerbation; J98.11 Atelectasis; J10.1 Influenza due to other identified influenza virus with other respiratory manifestations; R06.02 Shortness of breath; I10 Essential (primary) hypertension; E86.0 Dehydration; I34.1 Nonrheumatic mitral (valve) prolapse; M47.9 Spondylosis, unspecified; M19.90 Unspecified osteoarthritis, unspecified site; R51 Headache; Z79.02 Long term (current) use of antithrombotics/antiplatelets; Z79.899 Other long term (current) drug therapy; Z86.79 Personal history of other diseases of the circulatory system; Z86.19 Personal history of other infectious and parasitic diseases
CPT/HCPCS: 36415; 80053; 81001; 82550; 82803; 83605; 84145; 84484; 85007; 85025; 87040; 87502; 93005; 93010; 94640; 96365; 96372; 99284

== ENCOUNTER 2017-07-05 12:02 | Outpatient (CLI) | payer OTHER ==
--- NOTE | 2017-07-05 15:21 | DI ---
EXAM: Two-view chest. HISTORY: Chronic obstructive pulmonary disease. DATE: 07/05/2017. COMPARISON: No comparison radiograph. Correlation is with a CT of the chest obtained on 06/01/2017. TECHNIQUE: PA and lateral views of the chest. FINDINGS: The lungs are hyperexpanded, and the AP diameter of the thorax appears somewhat widened. A small calcified granuloma is again seen in the right middle lobe. No focal consolidation, pleural effusion, or pneumothorax is identified. The heart size is normal. The thoracic aorta contains calc ified plaque. There are mild degenerative changes of the thoracic spine. IMPRESSION:. 1. No acute cardiopulmonary findings. 2. Findings suggestive of emphysematous changes of the lungs. 3. Atherosclerosis.
== END 2017-07-05 12:03 | disposition home or self-care (01) ==
LOC: RAD 12:02
PROVIDERS: ATTEND Emergency Medicine
DX: J06.9 Acute upper respiratory infection, unspecified (principal); J44.9 Chronic obstructive pulmonary disease, unspecified

== ENCOUNTER 2017-10-15 11:47 | Emergency (ER) ==
[2017-10-15 11:52] VITALS: TEMP 97.9; BMI 34.4
--- NOTE | 2017-10-15 12:30 | ED.PDOC ---
General ED Provider: Dr. JACY KING Chief Complaint: Hypertension Stated Complaint: Blood pressure uncontrolled. Patient states her blood pressure was up and checked it and it was 190/120. Patient states she just took extra dose of her medicication. Patient states she was at [address] [place] [id number] and was given clonidine. She states she is not sure what her blood pressure was at the clinic but bottom number was 102. States she had and upset stomach yesterday but denies any other symptoms. Time Seen by Physician: 11:45 Mode of Arrival: Walk-In Information Source: Patient Exam Limitations: No limitations Primary Care Provider[facility] Nursing and Triage Documentation Reviewed and Agree: Yes Does patient meet sepsis criteria?: No System Inflammatory Response Syndrome: Not Applicable Sepsis Protocol: For patient's 13 years and over: Temp is 96.8 and below OR 101 and greater Pulse >90 BPM Resp >20/minute Acutely Altered Mental Status Are patient's symptoms suggestive of a new infection, such as: -Pneumonia -Skin, Soft Tissue -Endocarditis -UTI -Bone, Joint Infection -Implantable Device -Acute Abdominal Infection -Wound Infection -Meningitis -Blood Stream Catheter Infection -Unknown Review of Systems - Review Of Systems Constitutional: Reports: No symptoms Eyes: Reports: No symptoms Ears, Nose, Mouth, Throat: Reports: No symptoms Respiratory: Reports: No symptoms Cardiac: Reports: Lightheadedness GI: Reports: No symptoms : Reports: No symptoms Musculoskeletal: Reports: No symptoms Skin: Reports: No symptoms Neurological: Reports: No symptoms Endocrine: Reports: No symptoms Hematologic/Lymphatic: Reports: No symptoms All Other Systems: Reviewed and Negative Past Medical History - Past Medical History Previously Healthy: Yes Endocrine: Reports: None Cardiovascular: Reports: Hypertension Respiratory: Reports: None, COPD Hematological: Reports: None Gastrointestinal: Reports: GERD Genitourinary: Reports: None Neuro/Psych: Reports: None Musculoskeletal: Reports: None Cancer: Reports: None Last Menstrual Period: n/a - Surgical History General Surgical History: Reports: None, Appendectomy, Tonsillectomy, Unknown ( aneruysms(4); Cerebral aneurysm with clipping, ) - Family History Family History: Reports: None, Heart, Hypertension - Social History Smoking Status: Former smoker Hx Substance Use: No Alcohol Screening: None Physical Exam - Physical Exam Appearance: Well-appearing, No pain distress, Well-nourished Eyes: JAYLEEN, EOMI, Conjunctiva clear ENT: Ears normal, Nose normal, Oropharynx normal Respiratory: Airway patent, Breath sounds clear, Breath sounds equal, Respirations nonlabored, Wheezes Cardiovascular: RRR, Pulses normal, No rub, No murmur GI/: Soft, Nontender, No masses, Bowel sounds normal, No Organomegaly Musculoskeletal: Normal strength, ROM intact, No edema, No calf tenderness Skin: Warm, Dry, Normal color Neurological: Sensation intact, Motor intact, Reflexes intact, Cranial nerves intact, Alert, Oriented Psychiatric: Affect appropriate, Mood appropriate Interpretation - Radiology Interpretation Radiology Interpretation By: Radiologist Radiology Results: No acute changes Exam Interpreted: CXR Re-Evaluation - Re-Evaluation Time of Re-Evaluation: 14:20 Status: Improved Vital Signs Stable: Yes Appearance: NAD Neuro: Alert and Oriented X3 CV: RRR Critical Care Note - Critical Care Note Total Time (mins): 60 Course - Course Hematology/Chemistry: 10/15/17 12:50 10/15/17 12:50 Orders, Labs, Meds: Lab Review 10/15/17 10/15/17 10/15/17 12:50 12:50 12:50 WBC 9.72 RBC 4.50 Hgb 14.8 Hct 42.4 MCV 94.2 MCH 32.9 H MCHC 34.9 RDW Coeff of Lizz 11.9 Plt Count 181 Immature Gran % (Auto) 0.2 Neut % (Auto) 56.1 Lymph % (Auto) 30.9 [place]y % (Auto) 5.3 Eos % (Auto) 6.8 Baso % (Auto) 0.7 Immature Gran # (Auto) 0.0 Neut # (Auto) 5.5 Lymph # (Auto) 3.0 D[place]y # (Auto) 0.5 Eos # (Auto) 0.7 Baso # (Auto) 0.1 ESR 5 Sodium 140 Potassium 3.9 Chloride 105 Carbon Dioxide 23 Anion Gap 15.9 BUN 21 H Creatinine 0.86 Estimated GFR (MDRD) 65.00 BUN/Creatinine Ratio 24.41 Glucose 105 Calcium 9.9 Total Bilirubin 0.6 AST 19 ALT 15 Alkaline Phosphatase 49 L Troponin I < 0.0100 Total Protein 6.6 Albumin 3.6 Globulin 3.0 Albumin/Globulin Ratio 1.20 Orders Category Date Time Status EKG-(ED ONLY) Stat CARDIO 10/15/17 12:34 Completed NEBULIZER TREATMENT Stat CARDIO 10/15/17 12:40 Completed CBC W/ AUTO DIFF Stat LAB 10/15/17 12:50 Completed CMP [COMPREHENSIVE METABOLIC PANEL] Stat LAB 10/15/17 12:50 Completed ESR Stat LAB 10/15/17 12:50 Completed TROPONIN I Stat LAB 10/15/17 12:50 Completed Levalbuterol HCl [Xopenex 1.25 mg] MEDS 10/15/17 12:39 Discontinued 1 vial NEB ONCE STA CHEST, 1V AP ONLY Stat RADS 10/15/17 12:33 Completed Medications Discontinued Medications Generic Name Dose Route Start Last Admin Trade Name Freq PRN Reason Stop Dose Admin Levalbuterol HCl 1 vial 10/15/17 12:39 10/15/17 12:51 Xopenex 1.25 Mg NEB 10/15/17 12:40 1 vial ONCE STA Administration Vital Signs: Temp Pulse Resp BP Pulse Ox 10/15/17 14:15 152/98 H 10/15/17 11:47 97.9 F 74 16 181/85 H 90 L Departure - Departure Time of Disposition: 14:30 Disposition: HOME SELF-CARE Discharge Problem: Hypertension, COPD (chronic obstructive pulmonary disease) Instructions: Heart Healthy Diet (ED), COPD (Chronic Obstructive Pulmonary Disease) (ED), Hypertension (ED) Condition: Fair Pt referred to PMD for follow-up: Yes (1 week) IPMP verified?: No Additional Instructions: monitor blood pressure at home. use nebulizer at home follow up with your doctor this week. Allergies/Adverse Reactions: Allergies meperidine HCl [From Demerol] Allergy (Intermediate, Verified 10/15/17 11:55) Hives amoxicillin [From Amoxil] Adverse Reaction (Verified 10/15/17 11:55) cefdinir Adverse Reaction (Verified 10/15/17 11:55) clavulanic acid [From Augmentin] Adverse Reaction (Verified 10/15/17 11:55) phenytoin [From Dilantin] Adverse Reaction (Verified 10/15/17 11:55) Sulfa (Sulfonamide Antibiotics) Adverse Reaction (Verified 10/15/17 11:55) Home Medications: Ambulatory Orders Clopidogrel Bisulfate [Clopidogrel] 75 mg PO DAILY 02/04/15 Metoprolol Tartrate 100 mg PO BID 02/04/15 Albuterol Sulfate [Ventolin Hfa] 2 puff IH TID 05/30/17 Calcium Carbonate [Calcium] 600 mg PO DAILY 05/30/17 Cholecalciferol (Vitamin D3) [Vitamin D3] 1 cap PO DAILY 05/30/17 Vitamin E 1,000 units PO DAILY 05/30/17 Amlodipine Besylate 5 mg PO DAILY 10/15/17 Disposition Discussed With: Patient, Family Cardiovascular Complaint Exam - Palpitations Complaint/Exam Symptoms Are: Still present Timing: Constant Initial Severity: Moderate Current Severity: Mild Aggravating: Reports: Rest Alleviating: Reports: Exertion Associated Signs and Symptoms: Reports: Dizziness. Denies: Lightheadedness, Syncope, Chest pain, Shortness of breath, Diaphoresis, Nausea, Vomiting Related Surgical History: Reports: None Cardiac Risk Factors: Reports: Hypertension, Elevated lipids Atrial Fibrillation Risk Factors: Reports: None Thyroid Exam: Normal Differential Diagnoses: Other (Hypertension )
[2017-10-15] MEDS ORDERED: XOPENEX 1.25 MG NEB STA (12:39)
[2017-10-15 14:15] VITALS: BP 152/98
--- NOTE | 2017-10-16 07:48 | DI ---
EXAM: Chest one view, frontal view only. HISTORY: Cough, dyspnea. COMPARISON: 07/05/2017. FINDINGS: The heart size is normal. There is no pulmonary vascular congestion. The lungs are clear . No pleural effusion or pneumothorax is seen. No acute osseous abnormality is identified. Since t he prior study, there has been no significant interval change. IMPRESSION: No acute cardiopulmonary process.
== END 2017-10-15 14:48 | disposition home or self-care (01) ==
LOC: ED 11:47
DX: I10 Essential (primary) hypertension (principal); J44.9 Chronic obstructive pulmonary disease, unspecified; Z79.899 Other long term (current) drug therapy
CPT/HCPCS: 36415; 80053; 84484; 85025; 85651; 93005; 93010; 94640; 99283

== ENCOUNTER 2017-10-20 16:28 | Inpatient (IN) | payer OTHER ==
[2017-10-20] MEDS ORDERED: DUONEB NEB PRN (16:46)
[2017-10-20] MEDS ORDERED: SODIUM CHLORIDE 1,000 ML IV SCH (17:00)
[2017-10-20 17:17] VITALS: BMI 32.8
--- NOTE | 2017-10-20 17:51 | CT ---
EXAM: CT of the head without contrast History: Dizziness and hypertension. Technique: Multiplanar CT images through the head were obtained without the administration of IV con trast Findings: The visualized paranasal sinuses and mastoid air cells are clear in general. Postsurgical changes of the right calvarium. No acute calvarial abnormalities. Metallic surgical clips seen at t he skull base probably from previous aneurysm repair. Intracranially there is mild to moderate atrophy. No midline shift and no hydrocephalus. No acute in tracranial hemorrhage or abnormal extraaxial fluid collections. There is encephalomalacia within the inferior right temporal lobe compatible with old trauma or old infarction. Impression: 1. No acute intracranial process. 2. Encephalomalacia within the inferior right temporal lobe compatible with old trauma or old infarc tion. 3. Postsurgical changes. 4. Cerebral atrophy
[2017-10-20] MEDS: BENICAR PO SCH (18:13)
[2017-10-20] MEDS: DUONEB NEB SCH (20:08)
[2017-10-20] MEDS: LOPRESSOR PO SCH (20:47)
[2017-10-20] MEDS ORDERED: NON-FORMULARY MEDICATION (Metoprolol Tartrate [Metoprolol Tartrate] 100 MG) PO SCH (21:00)
[2017-10-21] MEDS: DUONEB NEB SCH ×4 (05:05→21:57)
[2017-10-21] MEDS: PRILOSEC PO SCH (05:35)
[2017-10-21] MEDS: CALCIUM 500 + VIT D 200 MG TABLET PO SCH (08:45)
[2017-10-21] MEDS: BENICAR PO SCH ×2 (08:45→13:01)
[2017-10-21] MEDS: VITAMIN D PO SCH (08:45)
[2017-10-21] MEDS: PLAVIX PO SCH (08:45)
[2017-10-21] MEDS: LOPRESSOR PO SCH ×2 (08:45→20:58)
[2017-10-21] MEDS: NORVASC PO SCH (08:45)
[2017-10-21] MEDS: VITAMIN E 1000 UNIT PO SCH (08:46)
[2017-10-21] MEDS ORDERED: NON-FORMULARY MEDICATION (Cholecalciferol (Vitamin D3) [Vitamin D3] 1 CAP) PO SCH (09:00)
[2017-10-21] MEDS ORDERED: BENICAR PO SCH (09:00)
[2017-10-21] MEDS ORDERED: NON-FORMULARY MEDICATION (Calcium Carbonate [Calcium] 600 MG) PO SCH (09:00)
[2017-10-21] MEDS ORDERED: LOVENOX ONE (12:54)
[2017-10-21] MEDS: LIBRIUM PO SCH ×3 (13:01→20:58)
[2017-10-21] MEDS: SOLU-MEDROL 40 MG IVP SCH ×2 (13:02→20:58)
[2017-10-21] MEDS: LOVENOX SUBCUT SCH (13:09)
[2017-10-22] MEDS: DUONEB NEB SCH ×4 (02:10→13:40)
[2017-10-22] MEDS: PRILOSEC PO SCH (05:53)
[2017-10-22] MEDS: PLAVIX PO SCH (08:14)
[2017-10-22] MEDS: VITAMIN D PO SCH (08:14)
[2017-10-22] MEDS: NORVASC PO SCH (08:14)
[2017-10-22] MEDS: LOVENOX SUBCUT SCH (08:14)
[2017-10-22] MEDS: CALCIUM 500 + VIT D 200 MG TABLET PO SCH (08:14)
[2017-10-22] MEDS: BENICAR PO SCH (08:14)
[2017-10-22] MEDS: LOPRESSOR PO SCH (08:14)
[2017-10-22] MEDS: SOLU-MEDROL 40 MG IVP SCH (08:15)
[2017-10-22] MEDS: VITAMIN E 1000 UNIT PO SCH (08:21)
[2017-10-22] MEDS: LIBRIUM PO SCH (08:22)
[2017-10-22 14:16] VITALS: BP 101/58; TEMP 97.5
--- NOTE | 2017-10-22 19:46 | DI ---
EXAM: PA and lateral views of the chest HISTORY: Cough COMPARISON: Chest x-ray 10/15/2017 FINDINGS: The cardiomediastinal silhouette is normal. There is no pneumothorax or pleural effusion. There is no consolidation, nodule or mass. Lungs are hyperinflated. The osseous structures demons trate degenerative disease of the thoracic spine. IMPRESSION: No acute consolidation with hyperinflation suggestive of chronic obstructive pulmonary d isease.
--- NOTE | 2017-10-25 11:55 | PN ---
DATE OF SERVICE: 10/21/17 SUBJECTIVE: The patient was admitted from the office for the uncontrolled hypertension, cough, congestion and wheezing. Still the patient is coughing and congestion. Blood pressure is still elevated 169/86. CT of the head was negative. REVIEW OF SYSTEMS: CONSTITUTIONAL: No fever, no chills. HEENT: Normal. ENDOCRINE: No weight gain, no weight loss. CVS: No angina symptoms. No CHF symptoms. No palpitations. No atypical chest pain for CAD. No shortness of breath. No PND, no orthopnea. RESPIRATORY: Cough and congestion, no hemoptysis. GI: No nausea, no vomiting. No abdominal pain. : No hematuria. No polyuria. MUSCULOSKELETAL: No joint swelling. PSYCHIATRIC: Not anxious. No depression. No suicidal thoughts. No homicidal thoughts. SKIN: Intact. No rash. PHYSICAL EXAMINATION: V/S: Blood pressure 186/93, respiratory rate 20, heart rate 77, temperature 97.5 with saturation is 92 on the room air. HEENT: Normocephalic, atraumatic. Mucosa dry. Pallor positive. No icterus. NECK: Supple. No JVD, no carotid bruit. No lymphadenopathy. LUNGS: Decreased and bilateral expiratory wheezing is present. Clear to auscultation. No rales or rhonchi. HEART: S1, S2 normal. No S3. No murmur, gallop or regurgitation. ABDOMEN: Soft, nontender. Bowel sounds active. No rigidity. No rebound or guarding. No CVA tenderness. EXTREMITIES: No cyanosis, clubbing or pedal edema. MUSCULOSKELETAL: No joint swelling. NEUROLOGIC: Awake, alert, oriented times three. No focal deficit. LYMPHATIC: No lymph nodes palpable. SKIN: Intact. LABS: WBC 8.08, hgb 14.5, hct 42.5, plt count 177, sodium 141, potassium 4.0, chloride 107, bicarb 25, BUN 15, creatinine 0.79 and glucose 109. ASSESSMENT: 1. COPD exacerbation secondary to the bronchitis 2. Hypertension uncontrolled 3. History of mitral valve prolapse 4. Headaches 5. History of Nicotine use PLAN: 1. Will increase the Benicar to 40mg daily 2. Solu-Medrol 40mg Q 12 hours 3. DUO NEBS 4. Daily I&O's 5. Lovenox for DVT prophylaxis. TIME SPENT: More than 35 minutes MTDD
--- NOTE | 2017-10-25 13:25 | DS ---
DATE OF SERVICE: 10/22/17 FINAL DIAGNOSIS: 1. Hypertension, uncontrolled 2. COPD exacerbation secondary to the bronchitis 3. Noncompliance 4. Dyslipidemia 5. Mitral valve prolapse 6. Osteoarthritis DISCHARGE INSTRUCTIONS: Discharge the patient home. Continue home medications. MEDICATIONS AT DISCHARGE: Symbicort DUO NEBS Albuterol Amlodipine Metoprolol 100mg twice a day Prilosec Vitamin B NEW PRESCRIPTIONS: Benicar 40mg PO daily Azithromycin Z-kana Prednisone 10mg Twice a day DIET INSTRUCTIONS: Cardiac and healthy ACTIVITY: As much tolerated DISEASE SPECIFIC EDUCATION: COPD Pneumonia risk and need for pneumonia vaccination. Antibiotics use and diarrhea Risk of uncontrolled blood pressure and stroke been discussed and verbalized understanding. HOSPITAL COURSE: Cody Myesha 72 year old female. The patient was seen in the emergency room on the October 15 for elevated blood pressure and blood pressure still been high so came to the office with cough, congestion and shortness of breath. Admitted to the hospital for COPD exacerbation, bronchitis and uncontrolled hypertension. The patient was started on the Benicar along with the Norvasc 5mg and Toprol 100mg twice a day. CT of the head done negative for any acute stroke. Chest x-ray done which is pending. Solu-Medrol, breathing treatment and DUO NEBS which improve the patient. Up and about walking. Benicar was increased to the 40mg daily so blood pressure is more better. As the patient was feeling good and did not have any complaints to the patient being discharged home today. TIME SPENT: MORE THAN 65 MINUTES MTDD
== END 2017-10-22 15:36 | disposition home or self-care (01) | DRG 305 ==
LOC: MEDSURG B 16:28
PROVIDERS: ADMIT Emergency Medicine; ATTEND Emergency Medicine
DX: I10 Essential (primary) hypertension (principal); J44.1 Chronic obstructive pulmonary disease with (acute) exacerbation; J44.0 Chronic obstructive pulmonary disease with (acute) lower respiratory infection; J20.9 Acute bronchitis, unspecified; E78.5 Hyperlipidemia, unspecified; I34.1 Nonrheumatic mitral (valve) prolapse; M19.90 Unspecified osteoarthritis, unspecified site; R51 Headache; Z72.0 Tobacco use; Z91.19 Patient's noncompliance with other medical treatment and regimen; Z79.02 Long term (current) use of antithrombotics/antiplatelets; Z79.899 Other long term (current) drug therapy
CPT/HCPCS: 36415; 80053; 82550; 84484; 85025; 93005; 93010; 94640

== ENCOUNTER 2018-03-01 10:11 | Outpatient (CLI) ==
--- NOTE | 2018-03-01 15:09 | DI ---
EXAM: PA and lateral views of the chest HISTORY: Cough COMPARISON: Chest Xray from 10/21/2017 FINDINGS: Lungs are clear with no lobar consolidation, failure, large effusion or significant atelec tasis. There is old granulomatous disease. Cardiac and mediastinal silhouettes show no acute abnormal ity. No acute osseous or soft tissue abnormalities. IMPRESSION: No active disease.
== END 2018-03-01 10:12 | disposition home or self-care (01) ==
LOC: RAD 10:11
PROVIDERS: ATTEND Nurse Practitioner Family
DX: R05 Cough (principal); I10 Essential (primary) hypertension
CPT/HCPCS: 36415; 80053; 80061; 84443

== ENCOUNTER 2018-03-07 09:40 | Outpatient (CLI) | payer OTHER ==
--- NOTE | 2018-03-07 10:17 | CT ---
EXAM: CT chest without contrast. HISTORY: Centrilobular emphysema. COMPARISON: 06/01/2017, 05/30/2017. Radiograph 03/01/2018. TECHNIQUE: Multiple axial images of the chest were obtained without intravenous contrast. Images we re reformatted in the sagittal and coronal planes. FINDINGS: Calcified and noncalcified mediastinal lymph nodes present. Evaluation for lymphadenopath y is limited by lack of intravenous contrast. Atherosclerotic calcifications present in the aorta and coronary arteries. Heart size is normal. No pericardial effusion identified. Right greater than left apical scarring again noted. Moderate centrilobular emphysematous changes pr esent in both lungs. Right upper lobe calcified granuloma noted. No suspicious nodule, consolidatio n, pleural effusion or pneumothorax identified. Limited images of the upper abdomen demonstrate probable left renal cyst. Degenerative changes prese nt in the spine. IMPRESSION: 1. No acute cardiopulmonary process. Stable right greater than left apical scarring. 2. Moderate centrilobular emphysema. 3. Resolution of the lower lobe airway thickening.
== END 2018-03-07 09:41 | disposition home or self-care (01) ==
LOC: RAD 09:40
PROVIDERS: ATTEND Nurse Practitioner Family
DX: J43.2 Centrilobular emphysema (principal); R91.8 Other nonspecific abnormal finding of lung field; J44.1 Chronic obstructive pulmonary disease with (acute) exacerbation

== ENCOUNTER 2018-06-19 09:32 | Outpatient (CLI) | payer OTHER ==
--- NOTE | 2018-06-22 09:11 | MAMMO ---
EXAM: Bilateral digital screening mammogram (2-D and 3-D) History: Screening Comparison: Bilateral mammogram 12/25/2015 Findings: MLO and CC views of bilateral breasts demonstrate predominately fatty replaced breast pare nchyma. CAD was reviewed by the radiologist. Tomosynthesis was performed. Stable small benign nodu le within the upper-outer quadrant of the left breast. No developing masses and no suspicious microc alcifications. Impression: Benign stable mammogram. Recommend followup routine screening mammography in 1 year. BIRADS 2, benign
== END 2018-06-19 09:33 | disposition home or self-care (01) ==
LOC: RAD 09:32
PROVIDERS: ATTEND Family Medicine
DX: Z12.31 Encounter for screening mammogram for malignant neoplasm of breast (principal)

== ENCOUNTER 2018-09-21 09:59 | Emergency (ER) | payer OTHER ==
[2018-09-21 10:08] VITALS: TEMP 96.8; BMI 37.1
[2018-09-21] MEDS ORDERED: CATAPRES PO STA (10:30)
--- NOTE | 2018-09-21 10:31 | ED.PDOC ---
General ED Provider: Dr. JACY HUTCHINS MD Chief Complaint: Hypertension Stated Complaint: HTN Time Seen by Physician: 10:24 Mode of Arrival: Walk-In Information Source: Patient Exam Limitations: No limitations Primary Care Provider: SUBHASH BLOOM Nursing and Triage Documentation Reviewed and Agree: Yes Does patient meet sepsis criteria?: No If yes, has appropriate treatment been initiated?: Yes System Inflammatory Response Syndrome: Not Applicable Sepsis Protocol: For patient's 13 years and over: Temp is 96.8 and below OR 101 and greater Pulse >90 BPM Resp >20/minute Acutely Altered Mental Status Are patient's symptoms suggestive of a new infection, such as: -Pneumonia -Skin, Soft Tissue -Endocarditis -UTI -Bone, Joint Infection -Implantable Device -Acute Abdominal Infection -Wound Infection -Meningitis -Blood Stream Catheter Infection -Unknown Review of Systems - Review Of Systems Constitutional: Reports: No symptoms Eyes: Reports: No symptoms Ears, Nose, Mouth, Throat: Reports: No symptoms Respiratory: Reports: No symptoms Cardiac: Reports: No symptoms GI: Reports: No symptoms : Reports: No symptoms Musculoskeletal: Reports: No symptoms Skin: Reports: No symptoms Neurological: Reports: No symptoms Endocrine: Reports: No symptoms Hematologic/Lymphatic: Reports: No symptoms All Other Systems: Reviewed and Negative Past Medical History - Past Medical History Previously Healthy: No Endocrine: Reports: None Cardiovascular: Reports: Hypertension Respiratory: Reports: None Hematological: Reports: None Gastrointestinal: Reports: GERD Genitourinary: Reports: None Neuro/Psych: Reports: None Musculoskeletal: Reports: None Cancer: Reports: None Last Menstrual Period: N/A - Surgical History General Surgical History: Reports: None - Family History Family History: Reports: None - Social History Smoking Status: Former smoker Hx Substance Use: No Alcohol Screening: None Physical Exam - Physical Exam Appearance: Well-appearing, No pain distress, Well-nourished Eyes: JAYLEEN, EOMI, Conjunctiva clear ENT: Ears normal, Nose normal, Oropharynx normal Respiratory: Airway patent, Breath sounds clear, Breath sounds equal, Respirations nonlabored Cardiovascular: RRR, Pulses normal, No rub, No murmur GI/: Soft, Nontender, No masses, Bowel sounds normal, No Organomegaly Musculoskeletal: Normal strength, ROM intact, No edema, No calf tenderness Skin: Warm, Dry, Normal color Neurological: Sensation intact, Motor intact, Reflexes intact, Cranial nerves intact, Alert, Oriented Psychiatric: Affect appropriate, Mood appropriate Critical Care Note - Critical Care Note Total Time (mins): 0 Course - Course Orders, Labs, Meds: Orders Category Date Time Status Clonidine HCl [Catapres] MEDS 09/21/18 10:30 Discontinued 0.1 mg PO ONCE STA Medications Discontinued Medications Generic Name Dose Route Start Last Admin Trade Name Tori PRN Reason Stop Dose Admin Clonidine 0.1 mg 09/21/18 10:30 09/21/18 10:38 Catapres PO 09/21/18 10:31 0.1 mg ONCE STA Administration Vital Signs: Temp Pulse Resp BP Pulse Ox 09/21/18 12:04 167/103 H 09/21/18 11:45 179/87 H 09/21/18 10:23 225/141 H 09/21/18 10:02 96.8 F L 84 16 166/104 H 93 L HERNANDEZ Risk Score HERNANDEZ Risk Score: Risk Score Odds of by 30D 0 0.1 (0.1-0.2) 1 0.3 (0.2-0.3) 2 0.4 (0.3-0.5) 3 0.7 (0.6-0.9) 4 1.2 (1.0-1.5) 5 2.2 (1.9-2.6) 6 3.0 (2.5-3.6) 7 4.8 (3.8-6.1) Departure - Departure Time of Disposition: 12:12 Disposition: HOME SELF-CARE Discharge Problem: Hypertension Qualifiers: Hypertension type: essential hypertension Qualified Code(s): I10 - Essential ( primary) hypertension Instructions: Chronic Hypertension (ED) Condition: Good Pt referred to PMD for follow-up: Yes IPMP verified?: No Allergies/Adverse Reactions: Allergies meperidine HCl [From Demerol] Allergy (Intermediate, Verified 09/21/18 10:01) Hives amoxicillin [From Amoxil] Adverse Reaction (Verified 09/21/18 10:01) cefdinir Adverse Reaction (Verified 09/21/18 10:01) clavulanic acid [From Augmentin] Adverse Reaction (Verified 09/21/18 10:01) phenytoin [From Dilantin] Adverse Reaction (Verified 09/21/18 10:01) Sulfa (Sulfonamide Antibiotics) Adverse Reaction (Verified 09/21/18 10:01) Home Medications: Ambulatory Orders Clopidogrel Bisulfate [Clopidogrel] 75 mg PO DAILY 02/04/15 Metoprolol Tartrate 100 mg PO BID 02/04/15 Calcium Carbonate [Calcium] 600 mg PO DAILY 05/30/17 Cholecalciferol (Vitamin D3) [Vitamin D3] 1 cap PO DAILY 05/30/17 Amlodipine Besylate 5 mg PO DAILY 10/15/17 Transfer Form Completed: No Disposition Discussed With: Patient
[2018-09-21 12:05] VITALS: BP 167/103
== END 2018-09-21 12:15 | disposition home or self-care (01) ==
LOC: ED 09:59
DX: I10 Essential (primary) hypertension (principal)
CPT/HCPCS: 99283

== ENCOUNTER 2020-06-20 09:39 | Inpatient (IN) ==
--- NOTE | 2020-06-20 10:05 | ED.PDOC ---
General ED Provider: Dr. JACY KING Chief Complaint: Nausea/Vomiting Stated Complaint: Nausea vomiting Time Seen by Provider: 06/20/20 09:51 Mode of Arrival: Walk-In Information Source: Patient Primary Care Provider: SUBHASH BLOOM Sepsis Protocol: For patient's 13 years and over: Temp is 96.8 and below OR 101 and greater Pulse >90 BPM Resp >20/minute Acutely Altered Mental Status Are patient's symptoms suggestive of a new infection, such as: -Pneumonia -Skin, Soft Tissue -Endocarditis -UTI -Bone, Joint Infection -Implantable Device -Acute Abdominal Infection -Wound Infection -Meningitis -Blood Stream Catheter Infection -Unknown [facility] Medical History (Updated 01/06/20 @ 08:51 by Skype) Aneurysm Cerebrovascular accident Hypertension Transient ischemia Social History History of recent travel: No Surgical History (Updated 01/06/20 @ 08:51 by Skype) History of neurologic surgery Status post appendectomy Status post tonsillectomy Status post tonsillectomy and adenoidectomy Female Reproductive History Menstrual Hx Hysterectomy: No Hx Tubal Ligation: Yes Course Course Vital Signs: Temp Pulse Resp BP Pulse Ox 06/20/20 09:39 97.9 F 94 H 22 132/80 90 L Discharge Plan Discharge Prescriptions: No Action metoprolol tartrate 100 MG tablet 100 mg PO BID RF: 0 clopidogrel 75 MG tablet 75 mg PO DAILY RF: 0 omeprazole 20 MG capsule,delayed release(DR/EC) 20 mg PO DAILY Qty: 90 RF: 0 ipratropium-albuterol 1 VIAL solution for nebulization 1 vial NEB 3-4XD PRN (Reason: SOB) Qty: 90 RF: 0 albuterol sulfate [Ventolin HFA] 8 GM HFA aerosol inhaler 2 puff inhalation TID Qty: 1 RF: 3 doxycycline hyclate 100 mg Capsule 100 mg PO BID RF: 0 budesonide 0.25 mg/2 mL Suspension For Nebulization 0.25 mg INHALATION BID RF: 0 losartan 100 mg Tablet 100 mg PO DAILY RF: 0 Bevespi Aerosphere 9-4.8 mcg Hfa Aerosol Inhaler 2 puff INHALATION Q12H RF: 0 prednisone 10 mg Tablet 40 mg PO DAILY RF: 0 calcium carbonate 600 MG tablet 600 mg PO DAILY RF: 0 cholecalciferol (vitamin D3) 1,000 UNIT capsule 1 cap PO DAILY RF: 0 amlodipine 5 MG tablet 5 mg PO DAILY RF: 0 ED Provider: JACY KING Physician Progress Note: []
[2020-06-20] MEDS ORDERED: SODIUM CHLORIDE 1,000 ML IV STA (10:08)
--- NOTE | 2020-06-20 10:39 | ED.PDOC ---
General ED Provider: Dr. JACY KING Chief Complaint: Nausea/Vomiting Stated Complaint: Nausea, vomiting and diarrhea/ Generalized aching with chills. Has COPD and chronically COPD. NO COUGH Time Seen by Provider: 06/20/20 09:51 Mode of Arrival: Walk-In Information Source: Patient Exam Limitations: No limitations Primary Care Provider: SUBHASH FELIX Nursing and Triage Documentation Reviewed and Agree: Yes Does patient meet sepsis criteria?: No System Inflammatory Response Syndrome: Not Applicable Sepsis Protocol: For patient's 13 years and over: Temp is 96.8 and below OR 101 and greater Pulse >90 BPM Resp >20/minute Acutely Altered Mental Status Are patient's symptoms suggestive of a new infection, such as: -Pneumonia -Skin, Soft Tissue -Endocarditis -UTI -Bone, Joint Infection -Implantable Device -Acute Abdominal Infection -Wound Infection -Meningitis -Blood Stream Catheter Infection -Unknown GI Complaint Exam Vomiting/Diarrhea Complaint/Exam Onset/Duration: 4 days Symptoms Are: Still present (but improved) Episodes of Vomiting over last 24 Hours: 0 Episodes of Diarrhea Over Last 24 Hours: 0 Initial Severity: Severe Current Severity: Mild Character of Vomiting: Reports Bilious Character of Diarrhea: Reports Watery Aggravating: Reports None and Liquids Alleviating: Reports NPO Associated Signs and Symptoms: Reports Light-headedness; Denies Dizziness, Melena, Hematemesis, Fever, Abdominal pain and Cramping Last Oral Intake: Earlier this AM Non-GI Risk Factors: Reports None Surgical Obstruction Risk Factors: Reports None Related Surgical History: Reports None Abdominal Findings: Present None Kussmaul Respirations Present: No Differential Diagnoses: Dehydration, Gastritis, Viral Gastroenteritis and Other (COVID 19) Review of Systems Review Of Systems Constitutional: Reports Weakness and Loss of appetite Eyes: Reports No symptoms Ears, Nose, Mouth, Throat: Reports No symptoms Respiratory: Reports Cough and Short of air Cardiac: Reports No symptoms GI: Reports No symptoms, Diarrhea, Nausea, Poor fluid intake and Vomiting : Reports No symptoms Musculoskeletal: Reports No symptoms Skin: Reports No symptoms Neurological: Reports No symptoms Endocrine: Reports No symptoms Hematologic/Lymphatic: Reports No symptoms All Other Systems: Reviewed and Negative [facility] Medical History Aneurysm Cerebrovascular accident Hypertension Transient ischemia Family History (Updated 06/20/20 @ 16:48 by JONES VARGAS RN) MATERNAL GRANDMOTHER No problems noted. Mother Diverticulitis Mother AAA (abdominal aortic aneurysm) FATHER Microinfarct, heart Social History (Updated 06/20/20 @ 16:48 by JONES VARGAS, RN) Smoking and tobacco status: Former smoker History of recent travel: No Surgical History History of neurologic surgery Status post appendectomy Status post tonsillectomy Status post tonsillectomy and adenoidectomy Female Reproductive History Menstrual Hx Hysterectomy: No Hx Tubal Ligation: Yes Physical Exam Physical Exam Appearance: Reports Ill-appearing and Obese Ill-appearing: Mild Pain Distress: None Eyes: Reports JAYLEEN, EOMI and Conjunctiva clear ENT: Reports Ears normal, Nose normal and Oropharynx normal Neck: Supple Respiratory: Reports Airway patent, Breath sounds clear, Breath sounds equal and Respirations nonlabored Cardiovascular: Reports RRR, Pulses normal, No rub and No murmur GI/: Reports Soft, Nontender, No masses, Bowel sounds normal, No Organomegaly and Bowel sounds hypoactive Musculoskeletal: Reports Normal strength, ROM intact, No edema and No calf tenderness Skin: Reports Warm, Dry and Normal color Neurological: Reports Sensation intact, Motor intact, Reflexes intact, Cranial nerves intact, Alert and Oriented Psychiatric: Reports Affect appropriate and Mood appropriate Interpretation Radiology Interpretation Radiology Interpretation By: Radiologist Exam Interpreted: Portable CXR (No acute finding in the chest.) Physician Notification Case Discussed Physician Notified: Dr Felix-transfer to [facility] unit(No Beds available Time of Notification: 10:40 Physician Notified: Dr Soto( accepted) Time of Notification: 11:10 Admit/Transition Orders Entered by ED Provider: Yes Reviewed With: Dr Felix( pref Admit here-[facility] w/o pulm or Inf Ds specialty Admit To: Inpatient Critical Care Note Critical Care Note Total Critical Care Time (mins): 60 Course Course Hematology/Chemistry: 06/21/20 05:05 06/21/20 05:05 Orders, Labs, Meds: Lab Review 06/20/20 06/20/20 06/20/20 10:20 10:49 10:49 WBC 5.88 RBC 4.26 Hgb 13.8 Hct 40.5 MCV 95.1 MCH 32.4 H MCHC 34.1 RDW Coeff of Lizz 12.2 Plt Count 116 L Immature Gran % (Auto) 0.5 Neut % (Auto) 78.0 H Lymph % (Auto) 15.6 [place] % (Auto) 5.6 Eos % (Auto) 0.0 Baso % (Auto) 0.3 Neut # (Auto) 4.6 Lymph # (Auto) 0.9 [place] # (Auto) 0.3 L Eos # (Auto) 0.0 Baso # (Auto) 0.0 Immature Gran # (Auto) 0.0 Puncture Site Lb Base Excess -5.0 L O2 Saturation 88.1 L ABG pH 7.38 ABG pCO2 34.0 L ABG pO2 56.0 L* ABG HCO3 20.1 L ABG Total CO2 21.1 Monster Test Positive Hemoglobin 0.8 Oxyhemoglobin 89.8 L Carboxyhemoglobin 1.6 H Total Hemoglobin 13.7 FiO2 % 21.0 Sodium 132.1 L Potassium 3.81 Chloride 102.6 Carbon Dioxide 22.2 Anion Gap 11.11 BUN 14.5 Creatinine 0.84 Estimated GFR (MDRD) 66.00 BUN/Creatinine Ratio 17.26 Glucose 111.4 H Lactic Acid Calcium 8.52 Total Bilirubin 0.42 AST 34.2 ALT 16.9 Alkaline Phosphatase 66.6 Total Protein 6.85 Albumin 3.69 Globulin 3.16 Albumin/Globulin Ratio 1.16 Urine Color Urine Clarity Urine pH Ur Specific [place] Urine Protein Urine Glucose (UA) Urine Ketones Urine Blood Urine Nitrite Urine Bilirubin Urine Urobilinogen Ur Leukocyte Esterase Urine Microscopic RBC Urine Microscopic WBC Ur Squamous Epith Cells Ur Renal Epithelial Cell Adenovirus (PCR) B. pertussis DNA (PCR) B.parapertussis DNA PCR C. pneumoniae DNA (PCR) Coronavirus OC43 (PCR) Coronavirus HKU1 (PCR) Coronavirus 229E (PCR) Coronavirus NL63 (PCR) Human Metapneumovir PCR Influenza Type A (PCR) Influenza B (RT-PCR) M. pneumoniae (PCR) Parainfluenza 1 (PCR) Parainfluenza 2 (PCR) Parainfluenza 3 (PCR) Parainfluenza 4 (PCR) RSV (PCR) Entero/Rhino (PCR) SARS-CoV-2 (PCR) 06/20/20 06/20/20 06/20/20 10:49 10:49 12:10 WBC RBC Hgb Hct MCV MCH MCHC RDW Coeff of Lizz Plt Count Immature Gran % (Auto) Neut % (Auto) Lymph % (Auto) [place] % (Auto) Eos % (Auto) Baso % (Auto) Neut # (Auto) Lymph # (Auto) [place] # (Auto) Eos # (Auto) Baso # (Auto) Immature Gran # (Auto) Puncture Site Base Excess O2 Saturation ABG pH ABG pCO2 ABG pO2 ABG HCO3 ABG Total CO2 Monster Test Hemoglobin Oxyhemoglobin Carboxyhemoglobin Total Hemoglobin FiO2 % Sodium Potassium Chloride Carbon Dioxide Anion Gap BUN Creatinine Estimated GFR (MDRD) BUN/Creatinine Ratio Glucose Lactic Acid 0.63 L Calcium Total Bilirubin AST ALT Alkaline Phosphatase Total Protein Albumin Globulin Albumin/Globulin Ratio Urine Color Yellow Urine Clarity Clear Urine pH 7.0 Ur Specific [place] 1.015 Urine Protein Negative Urine Glucose (UA) Negative Urine Ketones Negative Urine Blood 1+ H Urine Nitrite Negative Urine Bilirubin Negative Urine Urobilinogen 0.2 Ur Leukocyte Esterase Negative Urine Microscopic RBC 2-5 Urine Microscopic WBC 0-2 Ur Squamous Epith Cells 0-2 Ur Renal Epithelial Cell 0-2 Adenovirus (PCR) Not detected B. pertussis DNA (PCR) Not detected B.parapertussis DNA PCR Not detected C. pneumoniae DNA (PCR) Not detected Coronavirus OC43 (PCR) Not detected Coronavirus HKU1 (PCR) Not detected Coronavirus 229E (PCR) Not detected Coronavirus NL63 (PCR) Not detected Human Metapneumovir PCR Not detected Influenza Type A (PCR) Not detected Influenza B (RT-PCR) Not detected M. pneumoniae (PCR) Not detected Parainfluenza 1 (PCR) Not detected Parainfluenza 2 (PCR) Not detected Parainfluenza 3 (PCR) Not detected Parainfluenza 4 (PCR) Not detected RSV (PCR) Not detected Entero/Rhino (PCR) Not detected SARS-CoV-2 (PCR) Detected H 06/20/20 12:25 WBC RBC Hgb Hct MCV MCH MCHC RDW Coeff of Lizz Plt Count Immature Gran % (Auto) Neut % (Auto) Lymph % (Auto) [place] % (Auto) Eos % (Auto) Baso % (Auto) Neut # (Auto) Lymph # (Auto) [place] # (Auto) Eos # (Auto) Baso # (Auto) Immature Gran # (Auto) Puncture Site Lb Base Excess -5.6 L O2 Saturation 85.9 L ABG pH 7.37 ABG pCO2 34.0 L ABG pO2 53.0 L* ABG HCO3 19.7 L ABG Total CO2 20.7 Monster Test Positive Hemoglobin 1.1 Oxyhemoglobin 87.7 L Carboxyhemoglobin 1.4 Total Hemoglobin 14.8 FiO2 % 21.0 Sodium Potassium Chloride Carbon Dioxide Anion Gap BUN Creatinine Estimated GFR (MDRD) BUN/Creatinine Ratio Glucose Lactic Acid Calcium Total Bilirubin AST ALT Alkaline Phosphatase Total Protein Albumin Globulin Albumin/Globulin Ratio Urine Color Urine Clarity Urine pH Ur Specific [place] Urine Protein Urine Glucose (UA) Urine Ketones Urine Blood Urine Nitrite Urine Bilirubin Urine Urobilinogen Ur Leukocyte Esterase Urine Microscopic RBC Urine Microscopic WBC Ur Squamous Epith Cells Ur Renal Epithelial Cell Adenovirus (PCR) B. pertussis DNA (PCR) B.parapertussis DNA PCR C. pneumoniae DNA (PCR) Coronavirus OC43 (PCR) Coronavirus HKU1 (PCR) Coronavirus 229E (PCR) Coronavirus NL63 (PCR) Human Metapneumovir PCR Influenza Type A (PCR) Influenza B (RT-PCR) M. pneumoniae (PCR) Parainfluenza 1 (PCR) Parainfluenza 2 (PCR) Parainfluenza 3 (PCR) Parainfluenza 4 (PCR) RSV (PCR) Entero/Rhino (PCR) SARS-CoV-2 (PCR) Orders Category Date Time Status ADMIT PATIENT INPATIENT .TO [facility] (MONITORED BED) ADMISSION 06/20/20 15:07 Completed ABG DRAW REQUEST Stat CARDIO 06/20/20 10:06 Completed ABG DRAW REQUEST Stat CARDIO 06/20/20 11:49 Completed METERED DOSE INHALATION Routine CARDIO 06/20/20 12:41 Completed OXYGEN Routine CARDIO 06/20/20 10:47 Completed TELEMETRY MONITORING TELE CARE 06/20/20 15:09 Completed IV [ED IV/MEDIPORT/POWERPORT] .ONCE EMERGENCY 06/20/20 10:08 Active ABG COOX Stat LAB 06/20/20 10:20 Completed ABG COOX Stat LAB 06/20/20 12:25 Completed BLOOD CULTURE (ED ONLY) Stat LAB 06/20/20 10:49 Received CBC W/ AUTO DIFF Stat LAB 06/20/20 10:49 Completed CMP [COMPREHENSIVE METABOLIC PANEL] Stat LAB 06/20/20 10:49 Completed LACTIC ACID Stat LAB 06/20/20 10:49 Completed RESPIRATORY PANEL 2.1 (PCR) Stat LAB 06/20/20 10:49 Completed UA [URINALYSIS C & S IF INDICATED] Stat LAB 06/20/20 12:10 Completed 0.9 % Sodium Chloride [Saline Flush] MEDS 06/20/20 10:08 Active 1 syr IVF PRN PRN Albuterol Inhaler(with Spacer) [Ventolin Hfa (Per Puff- MEDS 06/20/20 12:41 Discontinued with Spacer)] 2 puff IH ONCE STA Dexamethasone Sod Phosphate [Decadron] MEDS 06/20/20 12:44 Discontinued 6 mg IVP ONCE STA Ipratropium Inhaler(Spacer) [Atrovent Hfa Inhaler (Per MEDS 06/20/20 12:41 Discontinued Puff-with Spacer)] 2 puff IH ONCE STA Sodium Chloride 0.9% [Sodium Chloride] 1,000 ml MEDS 06/20/20 10:08 Discontinued IV BOLUS CHEST, 1V AP ONLY Stat RADS 06/20/20 10:05 Completed Medications Generic Name Dose Route Start Last Admin Trade Name Freq PRN Reason Stop Dose Admin Amlodipine Besylate 5 mg 06/21/20 09:00 Amlodipine Besylate 5 Mg Tablet PO DAILY BEKAH Cholecalciferol 1,000 unit 06/20/20 16:00 06/20/20 16:31 Cholecalciferol (Vitamin D3) 1,000 Unit Tablet PO 1,000 unit DAILY BEKAH Administration Clopidogrel Bisulfate 75 mg 06/20/20 16:00 06/20/20 16:31 Clopidogrel Bisulfate 75 Mg Tablet PO 75 mg DAILY BEKAH Administration Dexamethasone Sodium Phosphate 6 mg 06/21/20 09:00 Dexamethasone Sod Phos 10 Mg/Ml Inj IVP DAILY BEKAH Potassium Chloride/Sodium Chloride 1,000 mls @ 75 mls/hr 06/20/20 20:00 06/20/20 20:03 Sodium Chloride 0.9%-Kcl 20 Meq IV 75 mls/hr .[id number] BEKAH Administration REMDESIVIR SOLUTION 200 mg/ 290 mls @ 125 mls/hr 06/21/20 08:30 Sodium Chloride IV 06/21/20 10:49 ONCE ONE Insulin Human Regular 0 unit 06/20/20 18:30 06/20/20 20:25 Insulin Regular, Human 100 Unit/Ml (3ml) Vial SUBCUT 5 unit PRN PRN Administration Hyperglycemia Protocol Losartan Potassium 100 mg 06/21/20 09:00 Losartan Potassium 100 Mg Tablet PO DAILY BEKAH Metoprolol Tartrate 100 mg 06/20/20 21:00 06/20/20 20:17 Metoprolol Tartrate 50 Mg Tablet PO 100 mg BID BEKAH Administration Omeprazole 20 mg 06/21/20 07:30 Omeprazole 20 Mg Capsule.Dr PO QDAC BEKAH Ondansetron HCl 4 mg 06/20/20 15:35 Ondansetron Hcl/Pf 4 Mg/2 Ml Sdv IVP Q6H PRN Nausea / Vomiting Sodium Chloride 1 syr 06/20/20 10:08 06/20/20 13:00 0.9% Sodium Chloride 10 Ml Disp.Syrin IVF 1 syr PRN PRN Administration To flush IV Discontinued Medications Generic Name Dose Route Start Last Admin Trade Name Freq PRN Reason Stop Dose Admin Albuterol Sulfate 2 puff 06/20/20 12:41 06/20/20 12:57 Albuterol Sulfate (Ventolin Hfa) 18 Gm 1 Puff With Spacer IH 06/20/20 12:42 2 puff ONCE STA Administration Dexamethasone Sodium Phosphate 6 mg 06/20/20 12:44 06/20/20 13:00 Dexamethasone Sod Phos 10 Mg/Ml Inj IVP 06/20/20 12:45 6 mg ONCE STA Administration Sodium Chloride 1,000 mls @ 1,000 mls/hr 06/20/20 10:08 06/20/20 10:32 Sodium Chloride IV 06/20/20 11:07 1,000 mls/hr BOLUS STA Administration Sodium Chloride 1,000 mls @ 75 mls/hr 06/20/20 16:00 06/20/20 16:32 Sodium Chloride IV Not Given .[id number] BEKAH REMDESIVIR SOLUTION 200 mg/ 290 mls @ 125 mls/hr 06/20/20 15:40 06/20/20 16:32 Sodium Chloride IV 06/20/20 17:59 Not Given ONCE ONE Ipratropium [place] 2 puff 06/20/20 12:41 06/20/20 12:58 Ipratropium [place] 12.9 Gm Hfa Inhaler Per Puff With Spacer IH 06/20/20 12:42 2 puff ONCE STA Administration Omeprazole 20 mg 06/20/20 16:00 06/20/20 16:31 Omeprazole 20 Mg Capsule. PO 20 mg DAILY BEKAH Administration Vital Signs: Temp Pulse Resp BP Pulse Ox 06/20/20 09:39 97.9 F 94 H 22 132/80 90 L Discharge Plan Discharge Patient Disposition: ADMITTED INPATIENT Discharge Problem: COVID-19 virus infection, Gastroenteritis, COPD with exacerbation, Hypoxemia ED Provider: JACY KING Condition: Good Physician Progress Note: Dr Felix requested transfer pt to [facility] for specialty care due to pt hx advanced COPD and risk for deterioration with COVID. NO BEDS Covid Unit. [facility] with bed and accepts. Patient understands and agrees. Contacted Dr Felix and informed of situation. States he agrees to admit patient at [facility] advising [facility] does not have Pulmonary or Infectious Disease specialty. Clarified with patent who concurs with decision to stay at [facility] []
[2020-06-20 10:43] LABS: ABG PH 7.38 (7.35-7.45)
--- NOTE | 2020-06-20 10:47 | DI ---
EXAM: Frontal view of the chest. COMPARISON: Chest radiograph 03/01/2018. HISTORY: Cough/congestion. FINDINGS: Bones appear diffusely demineralized. Normal heart size. Aortic calcifications. Scattered calcified granulomas. No acute consolidation. No visible pleural effusion or pneumothorax. IMPRESSION: No acute finding in the chest.
[2020-06-20 10:52] LABS: BASOPHILS % (AUTO) 0.3 % (0.0-3.0); HEMATOCRIT 40.5 % (37.0-47.0); HEMOGLOBIN 13.8 g/dl (12.0-16.0); IMMATURE GRANULOCYTE % (AUTO) 0.5 % (0.0-5.0); LYMPHOCYTES # (AUTO) 0.9 K/uL (0.60-3.4); LYMPHOCYTES % (AUTO) 15.6 (10.0-50.0); MEAN CORPUSCULAR HEMOGLOBIN 32.4 pg (27.0-31.0); MEAN CORPUSCULAR HGB CONC 34.1 (31.8-35.4); MEAN CORPUSCULAR VOLUME 95.1 fl (81.0-99.0); MONOCYTES # (AUTO) 0.3 K/uL (0.4-2.0); MONOCYTES % (AUTO) 5.6 (0-10); NEUTROPHILS # (AUTO) 4.6 K/ul (2.0-6.9); PLATELET COUNT 116 10^3/uL (140-440); RDW COEFFICIENT OF VARIATION 12.2 % (11.6-14.8); RED BLOOD COUNT 4.26 10^6/ul (4.20-5.40); WHITE BLOOD COUNT 5.88 K/ul (4.6-10.2)
[2020-06-20 11:02] LABS: ALANINE AMINOTRANSFERASE 16.9 U/L (0-35); ALBUMIN 3.69 g/dL (3.5-5.0); ALKALINE PHOSPHATASE 66.6 U/L (53-141); ASPARTATE AMINO TRANSFERASE 34.2 U/L (14-36); BILIRUBIN,TOTAL 0.42 mg/dL (0.2-1.3); BLOOD UREA NITROGEN 14.5 mg/dL (7-17); CALCIUM 8.52 mg/dL (8.4-10.2); CARBON DIOXIDE 22.2 mmol/L (22-30.0); CHLORIDE 102.6 mmol/L (98-107); CREATININE 0.84 mg/dL (0.60-1.30); GLUCOSE 111.4 mg/dL (74-106); POTASSIUM 3.81 mmol/L (3.5-5.1); SODIUM 132.1 mmol/L (134.5-145); TOTAL PROTEIN 6.85 g/dL (6.3-8.2)
[2020-06-20 12:19] LABS: BILIRUBIN,URINE Negative (NEGATIVE); CLARITY,URINE Clear (CLEAR); COLOR,URINE Yellow (YELLOW); GLUCOSE, URINE (UA) Negative (NEGATIVE); KETONES,URINE Negative (NEGATIVE); LEUKOCYTE ESTERASE ,URINE Negative (NEGATIVE); NITRITE,URINE Negative (NEGATIVE); PROTEIN,URINE Negative (NEGATIVE); URINE, BLOOD 1+ (NEGATIVE); UROBILINOGEN,URINE 0.2 (0.2)
[2020-06-20 12:24] LABS: RENAL EPITHELIAL CELLS,URINE 0-2 (NOT PRESENT); SQUAMOUS EPITHELIAL CELL,UR 0-2 (0-5); URINE WBC, MICROSCOPIC 0-2 (0-2)
[2020-06-20 12:35] LABS: ABG PH 7.37 (7.35-7.45)
[2020-06-20] MEDS ORDERED: VENTOLIN HFA (PER PUFF-WITH SPACER) IH STA (12:41)
[2020-06-20] MEDS ORDERED: ATROVENT HFA INHALER (PER PUFF-WITH SPACER) IH STA (12:41)
[2020-06-20] MEDS ORDERED: DECADRON IVP STA (12:44)
[2020-06-20] MEDS ORDERED: ZOFRAN 4 MG/2 ML IVP PRN (15:35)
[2020-06-20] MEDS ORDERED: REMDESIVIR 200 MG in SODIUM CHLORIDE 250 ML IV ONE (15:40)
[2020-06-20] MEDS ORDERED: SODIUM CHLORIDE 1,000 ML IV SCH (16:00)
[2020-06-20] MEDS ORDERED: PRILOSEC PO SCH (16:00)
[2020-06-20] MEDS: VITAMIN D PO SCH (16:31)
[2020-06-20] MEDS: PLAVIX PO SCH (16:31)
[2020-06-20 17:08] VITALS: BMI 35.6
[2020-06-20] MEDS ORDERED: ADDITIVE ONLY IV SCH (18:30)
[2020-06-20] MEDS ORDERED: POTASSIUM CHLORIDE IV SCH (18:30)
[2020-06-20] MEDS ORDERED: SODIUM CHLORIDE IV SCH (18:30)
[2020-06-20] MEDS: SODIUM CHLORIDE 0.9%-KCL 20 MEQ 1,000 ML IV SCH (20:03)
[2020-06-20] MEDS: LOPRESSOR PO SCH (20:17)
[2020-06-20] MEDS: HUMULIN R SUBCUT PRN (20:25)
[2020-06-21 05:14] LABS: HEMATOCRIT 39.6 % (37.0-47.0); HEMOGLOBIN 13.2 g/dl (12.0-16.0); IMMATURE GRANULOCYTE % (AUTO) 0.3 % (0.0-5.0); LYMPHOCYTES # (AUTO) 0.9 K/uL (0.60-3.4); LYMPHOCYTES % (AUTO) 28.3 (10.0-50.0); MEAN CORPUSCULAR HEMOGLOBIN 32.7 pg (27.0-31.0); MEAN CORPUSCULAR HGB CONC 33.3 (31.8-35.4); MONOCYTES # (AUTO) 0.3 K/uL (0.4-2.0); MONOCYTES % (AUTO) 8.1 (0-10); NEUTROPHILS % (AUTO) 63.3 % (42.2-75.2); PLATELET COUNT 119 10^3/uL (140-440); RDW COEFFICIENT OF VARIATION 12.3 % (11.6-14.8); RED BLOOD COUNT 4.04 10^6/ul (4.20-5.40); WHITE BLOOD COUNT 3.21 K/ul (4.6-10.2)
[2020-06-21 05:32] LABS: ALANINE AMINOTRANSFERASE 15.7 U/L (0-35); ALBUMIN 3.07 g/dL (3.5-5.0); ASPARTATE AMINO TRANSFERASE 32.9 U/L (14-36); BILIRUBIN,TOTAL 0.4 mg/dL (0.2-1.3); BLOOD UREA NITROGEN 18.5 mg/dL (7-17); CALCIUM 8.58 mg/dL (8.4-10.2); CHLORIDE 114.2 mmol/L (98-107); CREATININE 0.71 mg/dL (0.60-1.30); GLUCOSE 118.5 mg/dL (74-106); POTASSIUM 4.61 mmol/L (3.5-5.1); SODIUM 137.9 mmol/L (134.5-145); TOTAL PROTEIN 5.95 g/dL (6.3-8.2)
[2020-06-21 07:44] LABS: PROTHROMBIN TIME 10.6 SEC (9.3-11.0)
[2020-06-21] MEDS ORDERED: REMDESIVIR 200 MG in SODIUM CHLORIDE 250 ML IV ONE (08:30)
[2020-06-21] MEDS: DECADRON IVP SCH (09:14)
[2020-06-21] MEDS: VITAMIN D PO SCH (09:14)
[2020-06-21] MEDS: COZAAR PO SCH (09:15)
[2020-06-21] MEDS: NORVASC PO SCH (09:15)
[2020-06-21] MEDS: PRILOSEC PO SCH (09:15)
[2020-06-21] MEDS: PLAVIX PO SCH (09:15)
[2020-06-21] MEDS: LOPRESSOR PO SCH ×2 (09:15→20:49)
[2020-06-21] MEDS: SODIUM CHLORIDE 0.9%-KCL 20 MEQ 1,000 ML IV SCH (14:22)
[2020-06-21] MEDS: ZINC-220 PO SCH (15:04)
[2020-06-21] MEDS: LOVENOX SUBCUT SCH (15:05)
[2020-06-21] MEDS: HUMULIN R SUBCUT PRN (20:50)
[2020-06-21] MEDS: LIPITOR PO SCH (20:50)
[2020-06-21] MEDS: ATROVENT HFA INHALER (PER PUFF-WITH SPACER) IH SCH (23:51)
[2020-06-21] MEDS: VENTOLIN HFA (PER PUFF-WITH SPACER) IH SCH (23:52)
[2020-06-22] MEDS ORDERED: VENTOLIN HFA (PER PUFF-WITH SPACER) IH SCH
[2020-06-22] MEDS: ATROVENT HFA INHALER (PER PUFF-WITH SPACER) IH SCH ×4 (04:35→23:25)
[2020-06-22] MEDS: VENTOLIN HFA (PER PUFF-WITH SPACER) IH SCH ×4 (04:35→23:25)
[2020-06-22 05:12] LABS: BASOPHILS % (AUTO) 0.2 % (0.0-3.0); HEMATOCRIT 40.3 % (37.0-47.0); HEMOGLOBIN 13.7 g/dl (12.0-16.0); IMMATURE GRANULOCYTE % (AUTO) 0.6 % (0.0-5.0); LYMPHOCYTES # (AUTO) 1.3 K/uL (0.60-3.4); LYMPHOCYTES % (AUTO) 20.1 (10.0-50.0); MEAN CORPUSCULAR HEMOGLOBIN 32.3 pg (27.0-31.0); MONOCYTES # (AUTO) 0.5 K/uL (0.4-2.0); MONOCYTES % (AUTO) 7.8 (0-10); NEUTROPHILS # (AUTO) 4.5 K/ul (2.0-6.9); NEUTROPHILS % (AUTO) 71.3 % (42.2-75.2); PLATELET COUNT 137 10^3/uL (140-440); RDW COEFFICIENT OF VARIATION 12.3 % (11.6-14.8); RED BLOOD COUNT 4.24 10^6/ul (4.20-5.40); WHITE BLOOD COUNT 6.26 K/ul (4.6-10.2)
[2020-06-22 05:23] LABS: ALANINE AMINOTRANSFERASE 25.3 U/L (0-35); ALBUMIN 3.6 g/dL (3.5-5.0); ALKALINE PHOSPHATASE 69.8 U/L (53-141); BILIRUBIN,TOTAL 0.41 mg/dL (0.2-1.3); BLOOD UREA NITROGEN 27.2 mg/dL (7-17); CALCIUM 8.86 mg/dL (8.4-10.2); CARBON DIOXIDE 21.9 mmol/L (22-30.0); CHLORIDE 109.2 mmol/L (98-107); CREATININE 0.86 mg/dL (0.60-1.30); GLUCOSE 120.5 mg/dL (74-106); POTASSIUM 4.24 mmol/L (3.5-5.1); PROTHROMBIN TIME 10.4 SEC (9.3-11.0); SODIUM 138.8 mmol/L (134.5-145); TOTAL PROTEIN 6.83 g/dL (6.3-8.2)
[2020-06-22] MEDS: PRILOSEC PO SCH (05:29)
[2020-06-22] MEDS: LOPRESSOR PO SCH ×2 (09:23→20:49)
[2020-06-22] MEDS: VITAMIN D PO SCH (09:23)
[2020-06-22] MEDS: COZAAR PO SCH (09:24)
[2020-06-22] MEDS: ZINC-220 PO SCH (09:24)
[2020-06-22] MEDS: LOVENOX SUBCUT SCH (09:24)
[2020-06-22] MEDS: NORVASC PO SCH (09:24)
[2020-06-22] MEDS: PLAVIX PO SCH (09:24)
[2020-06-22] MEDS: REMDESIVIR 100 MG in SODIUM CHLORIDE 250 ML IV SCH (12:31)
[2020-06-22] MEDS: DECADRON IVP SCH (13:43)
[2020-06-22] MEDS: HUMULIN R SUBCUT PRN (20:49)
[2020-06-22] MEDS: LIPITOR PO SCH (20:49)
[2020-06-23 04:57] LABS: BASOPHILS % (AUTO) 0.2 % (0.0-3.0); HEMATOCRIT 38.4 % (37.0-47.0); IMMATURE GRANULOCYTE % (AUTO) 0.5 % (0.0-5.0); LYMPHOCYTES # (AUTO) 0.8 K/uL (0.60-3.4); LYMPHOCYTES % (AUTO) 18.6 (10.0-50.0); MEAN CORPUSCULAR HEMOGLOBIN 32.3 pg (27.0-31.0); MEAN CORPUSCULAR HGB CONC 33.9 (31.8-35.4); MEAN CORPUSCULAR VOLUME 95.3 fl (81.0-99.0); MONOCYTES # (AUTO) 0.3 K/uL (0.4-2.0); MONOCYTES % (AUTO) 6.6 (0-10); NEUTROPHILS # (AUTO) 3.2 K/ul (2.0-6.9); NEUTROPHILS % (AUTO) 74.1 % (42.2-75.2); PLATELET COUNT 148 10^3/uL (140-440); RDW COEFFICIENT OF VARIATION 12.2 % (11.6-14.8); RED BLOOD COUNT 4.03 10^6/ul (4.20-5.40); WHITE BLOOD COUNT 4.25 K/ul (4.6-10.2)
[2020-06-23 05:07] LABS: PROTHROMBIN TIME 10.5 SEC (9.3-11.0)
[2020-06-23 05:09] LABS: ALANINE AMINOTRANSFERASE 29.1 U/L (0-35); ALBUMIN 3.24 g/dL (3.5-5.0); ALKALINE PHOSPHATASE 61.2 U/L (53-141); ASPARTATE AMINO TRANSFERASE 38.9 U/L (14-36); BILIRUBIN,TOTAL 0.31 mg/dL (0.2-1.3); CALCIUM 8.5 mg/dL (8.4-10.2); CARBON DIOXIDE 20.7 mmol/L (22-30.0); CHLORIDE 108.5 mmol/L (98-107); CREATININE 0.95 mg/dL (0.60-1.30); GLUCOSE 139.5 mg/dL (74-106); POTASSIUM 4.14 mmol/L (3.5-5.1); SODIUM 137.7 mmol/L (134.5-145); TOTAL PROTEIN 6.08 g/dL (6.3-8.2)
[2020-06-23] MEDS: VENTOLIN HFA (PER PUFF-WITH SPACER) IH SCH ×4 (05:15→23:30)
[2020-06-23] MEDS: ATROVENT HFA INHALER (PER PUFF-WITH SPACER) IH SCH ×4 (05:15→23:30)
[2020-06-23] MEDS: PRILOSEC PO SCH (05:44)
[2020-06-23] MEDS: COZAAR PO SCH (08:01)
[2020-06-23] MEDS: NORVASC PO SCH (08:01)
[2020-06-23] MEDS: ZINC-220 PO SCH (08:01)
[2020-06-23] MEDS: VITAMIN D PO SCH (08:01)
[2020-06-23] MEDS: PLAVIX PO SCH (08:01)
[2020-06-23] MEDS: LOPRESSOR PO SCH ×2 (08:01→20:55)
[2020-06-23] MEDS: LOVENOX SUBCUT SCH (08:02)
[2020-06-23] MEDS: DECADRON IVP SCH (08:47)
[2020-06-23] MEDS: REMDESIVIR 100 MG in SODIUM CHLORIDE 250 ML IV SCH (12:39)
[2020-06-23] MEDS: HUMULIN R SUBCUT PRN (17:30)
[2020-06-23] MEDS: LIPITOR PO SCH (20:55)
[2020-06-24] MEDS: VENTOLIN HFA (PER PUFF-WITH SPACER) IH SCH ×4 (04:55→22:30)
[2020-06-24] MEDS: ATROVENT HFA INHALER (PER PUFF-WITH SPACER) IH SCH ×4 (04:55→22:30)
[2020-06-24] MEDS: PRILOSEC PO SCH (05:54)
[2020-06-24 06:01] LABS: BASOPHILS % (AUTO) 0.2 % (0.0-3.0); HEMOGLOBIN 13.4 g/dl (12.0-16.0); IMMATURE GRANULOCYTE # (AUTO) 0.1 (0.0-1.0); IMMATURE GRANULOCYTE % (AUTO) 1.1 % (0.0-5.0); LYMPHOCYTES # (AUTO) 1.1 K/uL (0.60-3.4); LYMPHOCYTES % (AUTO) 20.2 (10.0-50.0); MEAN CORPUSCULAR HEMOGLOBIN 32.4 pg (27.0-31.0); MEAN CORPUSCULAR HGB CONC 34.4 (31.8-35.4); MEAN CORPUSCULAR VOLUME 94.2 fl (81.0-99.0); MONOCYTES # (AUTO) 0.5 K/uL (0.4-2.0); MONOCYTES % (AUTO) 9.2 (0-10); NEUTROPHILS # (AUTO) 3.9 K/ul (2.0-6.9); NEUTROPHILS % (AUTO) 69.3 % (42.2-75.2); PLATELET COUNT 150 10^3/uL (140-440); RDW COEFFICIENT OF VARIATION 12.1 % (11.6-14.8); RED BLOOD COUNT 4.14 10^6/ul (4.20-5.40); WHITE BLOOD COUNT 5.63 K/ul (4.6-10.2)
[2020-06-24 06:14] LABS: ALANINE AMINOTRANSFERASE 47.6 U/L (0-35); ALBUMIN 3.14 g/dL (3.5-5.0); ALKALINE PHOSPHATASE 53.6 U/L (53-141); ASPARTATE AMINO TRANSFERASE 42.1 U/L (14-36); BILIRUBIN,TOTAL 0.36 mg/dL (0.2-1.3); BLOOD UREA NITROGEN 31.9 mg/dL (7-17); CALCIUM 8.57 mg/dL (8.4-10.2); CARBON DIOXIDE 22.8 mmol/L (22-30.0); CHLORIDE 108.1 mmol/L (98-107); CREATININE 0.94 mg/dL (0.60-1.30); GLUCOSE 126.4 mg/dL (74-106); SODIUM 136.6 mmol/L (134.5-145); TOTAL PROTEIN 5.96 g/dL (6.3-8.2)
[2020-06-24] MEDS: COZAAR PO SCH (08:30)
[2020-06-24] MEDS: VITAMIN D PO SCH (08:30)
[2020-06-24] MEDS: LOVENOX SUBCUT SCH (08:30)
[2020-06-24] MEDS: ZINC-220 PO SCH (08:30)
[2020-06-24] MEDS: NORVASC PO SCH (08:30)
[2020-06-24] MEDS: LOPRESSOR PO SCH ×2 (08:30→20:24)
[2020-06-24] MEDS: PLAVIX PO SCH (08:30)
[2020-06-24] MEDS: DECADRON IVP SCH (09:56)
[2020-06-24] MEDS: HUMULIN R SUBCUT PRN ×2 (11:36→20:25)
[2020-06-24] MEDS: REMDESIVIR 100 MG in SODIUM CHLORIDE 250 ML IV SCH (13:15)
[2020-06-24] MEDS: LIPITOR PO SCH (20:24)
[2020-06-25] MEDS: VENTOLIN HFA (PER PUFF-WITH SPACER) IH SCH ×2 (05:00→11:38)
[2020-06-25] MEDS: ATROVENT HFA INHALER (PER PUFF-WITH SPACER) IH SCH ×2 (05:00→11:38)
[2020-06-25] MEDS: PRILOSEC PO SCH (06:14)
[2020-06-25 08:27] LABS: ALANINE AMINOTRANSFERASE 50.3 U/L (0-35); ALBUMIN 2.98 g/dL (3.5-5.0); ASPARTATE AMINO TRANSFERASE 41.4 U/L (14-36); BILIRUBIN,TOTAL 0.39 mg/dL (0.2-1.3); BLOOD UREA NITROGEN 29.7 mg/dL (7-17); CALCIUM 8.49 mg/dL (8.4-10.2); CARBON DIOXIDE 27.1 mmol/L (22-30.0); CHLORIDE 107.2 mmol/L (98-107); CREATININE 0.96 mg/dL (0.60-1.30); GLUCOSE 117.3 mg/dL (74-106); POTASSIUM 4.07 mmol/L (3.5-5.1); SODIUM 138.3 mmol/L (134.5-145); TOTAL PROTEIN 5.95 g/dL (6.3-8.2)
[2020-06-25] MEDS: COZAAR PO SCH (09:45)
[2020-06-25] MEDS: VITAMIN D PO SCH (09:45)
[2020-06-25] MEDS: LOPRESSOR PO SCH (09:45)
[2020-06-25] MEDS: NORVASC PO SCH (09:45)
[2020-06-25] MEDS: PLAVIX PO SCH (09:45)
[2020-06-25] MEDS: DECADRON IVP SCH (09:45)
[2020-06-25] MEDS: ZINC-220 PO SCH (09:45)
[2020-06-25] MEDS: LOVENOX SUBCUT SCH (09:46)
[2020-06-25] MEDS: HUMULIN R SUBCUT PRN (12:26)
[2020-06-25] MEDS: REMDESIVIR 100 MG in SODIUM CHLORIDE 250 ML IV SCH (13:06)
[2020-06-25 14:28] VITALS: BP 124/61
[2020-06-25 14:37] VITALS: TEMP 98.2
== END 2020-06-25 17:25 | disposition home or self-care (01) | DRG 391 ==
LOC: ED 09:39 → SCU 15:07
PROVIDERS: ADMIT Family Medicine; ATTEND Family Medicine
DX: R42 Dizziness and giddiness; R09.02 Hypoxemia; D69.6 Thrombocytopenia, unspecified; R11.2 Nausea with vomiting, unspecified; J96.01 Acute respiratory failure with hypoxia; R09.81 Nasal congestion; K52.9 Noninfective gastroenteritis and colitis, unspecified; J18.9 Pneumonia, unspecified organism; J44.1 Chronic obstructive pulmonary disease with (acute) exacerbation; R19.7 Diarrhea, unspecified; I10 Essential (primary) hypertension; R63.0 Anorexia; R05 Cough; J40 Bronchitis, not specified as acute or chronic; R53.1 Weakness; R06.02 Shortness of breath